=== PATIENT | female | born 1930 | race Caucasian/White ===

== ENCOUNTER 2016-06-09 21:00 | Emergency (ER) | payer OTHER ==
[~2016-06-09] VITALS: Ht 160 cm; Wt 74.9 kg
[~2016-06-09 21:00] MED LIST: ATACAND32 MG PO; Atarax,Vistaril PO; Ativan PO; COZAAR25 MG PO; CYMBALTA20 MG PO; CYMBALTA60 MG PO; DELTASONE5 MG PO; Flovent 110 mcg IH; GABAPENTIN100 MG PO; HYDROCHLOROTHIA25 MG PO; MIRAPEX0.25 MG PO; MIRAPEX0.5 MG PO; Mycostatin PO; NEXIUM40 MG PO; NORVASC5 MG PO; OXYCONTIN10 MG PO; PERCOCET 5/31 TABLET PO; PREDNISONE20 MG PO; Proventil,Ventolin H IH; Tamiflu PO; ULTRAM ER300 MG PO; VIBRA-TABS100 MG PO; predniSONE PO
[2016-06-09] MEDS ORDERED: ASPIR 8181 M1 PO (21:21)
[2016-06-09] MEDS ORDERED: METOPROLOL TART25 MG PO (21:22)
[2016-06-09] MEDS ORDERED: PREDNISONE5 MG PO (21:23)
[2016-06-09 21:47] LABS: EOSINOPHIL (%) 0.6 % (0-5); EOSINOPHIL COUNT 0.1 K/uL (0-0.3); HEMATOCRIT 41.4 % (36.0-46.0); IMMATURE GRANULOCYTE (%) 0.2 % (0.0-0.7); IMMATURE GRANULOCYTE COUNT 0.2 K/uL; LYMPHOCYTE COUNT 1.6 K/uL (1.0-2.8); MCH 30.9 PG (29.0-34.0); MCHC 33.1 G/DL (30.0-36.0); MCV 93.2 FL (83-99); MEAN PLAT.VOLUME 9.1 uM^3 (9.5-12.4); MONOCYTE (%) 8.8 % (3-12); MONOCYTE COUNT 0.9 K/uL (0-0.8); NEUTROPHIL (%) 75.1 % (45-76); NEUTROPHIL COUNT 7.8 K/uL (1.8-6.4); PLATELET COUNT 280 K/uL (156-360); RBC DIS.WIDTH-CV 13.1 % (11.8-14.6); RBC DIS.WIDTH-SD 43.2 % (39-53); RED BLOOD COUNT 4.44 M/uL (3.80-5.20); WHITE BLOOD COUNT 10.4 K/uL (4.1-10.2)
[2016-06-09 21:55] LABS: CHLORIDE 100 mEq/L (99-109); POTASSIUM 3.5 mEq/L (3.7-5.4); SODIUM 139 mEq/L (136-147)
[2016-06-09 21:57] LABS: GLUCOSE 108 mg/dL (70-99)
[2016-06-09 21:58] LABS: ANION GAP 11 MEQ/L (2-14)
[2016-06-09 22:00] LABS: GFR ESTIMATE (CALCULATED) > 59 mL/min/
[2016-06-09 22:01] LABS: UREA NITROGEN (BUN) 14 mg/dL (9-23)
[2016-06-09 22:09] LABS: TROP-I INTERPRETATION NEGATIVE; TROPONIN-I 0.02 ng/mL (0.0-0.30)
[2016-06-09 22:22] LABS: INFLUENZA A VIRAL ANTIGEN NEGATIVE; INFLUENZA B VIRAL ANTIGEN NEGATIVE
[2016-06-09 23:17] LABS: ADD MIUA? YES; BILIRUBIN NEGATIVE; BLOOD NEGATIVE; COLOR YELLOW ((YELLOW)); GLUCOSE (STRIP) NEGATIVE; KETONES NEGATIVE; LEUKOCYTES SMALL; NITRITE NEGATIVE; PH, URINE 6.5 (5-8); PROTEIN (STRIP) NEGATIVE; SPECIFIC GRAVITY 1.013 (1.000-1.030); UROBILINOGEN 0.2 MG/DL (0.2-1.0)
[2016-06-09 23:48] LABS: BACTERIA RARE /HPF; CASTS NONE SEEN /LPF; CRYSTALS NONE SEEN; EPITHELIAL CELLS NONE SEEN /HPF; MUCUS NONE SEEN /LPF; RED BLOOD CELLS NONE SEEN /HPF (0-5); WHITE BLOOD CELLS 0-5 /HPF (0-5)
[2016-06-10 01:30] VITALS: BP 133/71
== END 2016-06-10 01:40 | disposition home or self-care (01) ==
LOC: EME → EDSEX 21:00 → EDBD 21:00 → EME 06-10 01:40
PROVIDERS: Emergency Medicine
DX: R10.30 Lower abdominal pain, unspecified (principal); R19.7 Diarrhea, unspecified; R51 Headache; E86.0 Dehydration; E83.52 Hypercalcemia; N83.202 Unspecified ovarian cyst, left side; R05 Cough; R35.0 Frequency of micturition; R53.1 Weakness; R42 Dizziness and giddiness; I10 Essential (primary) hypertension; G89.29 Other chronic pain; Z79.891 Long term (current) use of opiate analgesic; Z79.52 Long term (current) use of systemic steroids; Z79.82 Long term (current) use of aspirin
CPT/HCPCS: 70450; 71020; 74177; 80048; 81003; 83605; 83880; 84484; 85025; 87040; 87502; 99281; 99285; J1100; J1200; J2765; J3010; J7030

== ENCOUNTER 2016-06-14 13:12 | Emergency (ER) | payer OTHER ==
[~2016-06-14] VITALS: Ht 162.6 cm; Wt 71.9 kg
[~2016-06-14 13:12] MED LIST changes: +ASPIR 8181 M1 PO; +METOPROLOL TART25 MG PO; +PREDNISONE5 MG PO
[2016-06-14 15:24] LABS: EOSINOPHIL (%) 0.1 % (0-5); HEMATOCRIT 42.1 % (36.0-46.0); IMMATURE GRANULOCYTE (%) 0.4 % (0.0-0.7); IMMATURE GRANULOCYTE COUNT 0.3 K/uL; LYMPHOCYTE COUNT 1.8 K/uL (1.0-2.8); MCH 31.1 PG (29.0-34.0); MCV 94.2 FL (83-99); MONOCYTE (%) 14.9 % (3-12); MONOCYTE COUNT 1.2 K/uL (0-0.8); NEUTROPHIL (%) 62.3 % (45-76); NEUTROPHIL COUNT 5.1 K/uL (1.8-6.4); PLATELET COUNT 274 K/uL (156-360); RBC DIS.WIDTH-CV 13.6 % (11.8-14.6); RBC DIS.WIDTH-SD 44.8 % (39-53); RED BLOOD COUNT 4.47 M/uL (3.80-5.20); WHITE BLOOD COUNT 8.1 K/uL (4.1-10.2)
[2016-06-14 15:34] LABS: CHLORIDE 103 mEq/L (99-109); POTASSIUM 3.7 mEq/L (3.7-5.4); SODIUM 140 mEq/L (136-147)
[2016-06-14 15:35] LABS: GLUCOSE 103 mg/dL (70-99)
[2016-06-14 15:37] LABS: ANION GAP 10 MEQ/L (2-14)
[2016-06-14 15:39] LABS: GFR ESTIMATE (CALCULATED) > 59 mL/min/
[2016-06-14 15:40] LABS: UREA NITROGEN (BUN) 9 mg/dL (9-23)
[2016-06-14 16:21] LABS: ADD MIUA? YES; BILIRUBIN NEGATIVE; BLOOD MODERATE; COLOR YELLOW ((YELLOW)); GLUCOSE (STRIP) NEGATIVE; KETONES NEGATIVE; LEUKOCYTES NEGATIVE; NITRITE NEGATIVE; PROTEIN (STRIP) NEGATIVE; SPECIFIC GRAVITY 1.005 (1.000-1.030); UROBILINOGEN 0.2 MG/DL (0.2-1.0)
[2016-06-14 16:28] LABS: BACTERIA RARE /HPF; EPITHELIAL CELLS RARE /HPF; MUCUS NONE SEEN /LPF; RED BLOOD CELLS 0-5 /HPF (0-5); UCUL ADDED? NO; WHITE BLOOD CELLS 0-5 /HPF (0-5)
[2016-06-14 22:09] LABS: INFLUENZA A VIRAL ANTIGEN NEGATIVE; INFLUENZA B VIRAL ANTIGEN NEGATIVE
[2016-06-14 23:37] VITALS: BP 135/66
== END 2016-06-15 00:15 | disposition home or self-care (01) ==
LOC: EME → EDBD 13:12 → EME 06-15 00:15
PROVIDERS: Emergency Medicine
DX: B34.9 Viral infection, unspecified (principal); R53.1 Weakness; E78.5 Hyperlipidemia, unspecified; I10 Essential (primary) hypertension; M79.7 Fibromyalgia; G89.29 Other chronic pain; K21.9 Gastro-esophageal reflux disease without esophagitis; Z85.3 Personal history of malignant neoplasm of breast; Z90.11 Acquired absence of right breast and nipple; Z79.82 Long term (current) use of aspirin; Z88.1 Allergy status to other antibiotic agents; Z88.6 Allergy status to analgesic agent; Z88.5 Allergy status to narcotic agent
CPT/HCPCS: 71020; 80048; 81003; 83605; 85025; 87502; 99281; 99285; J1885; J7030

== ENCOUNTER 2016-09-25 16:22 | Emergency (ER) | payer OTHER ==
[~2016-09-25] VITALS: Ht 157.5 cm; Wt 73.3 kg
[2016-09-25 17:06] LABS: EOSINOPHIL (%) 1.9 % (0-5); EOSINOPHIL COUNT 0.2 K/uL (0-0.3); HEMATOCRIT 40.3 % (36.0-46.0); IMMATURE GRANULOCYTE (%) 0.3 % (0.0-0.7); INSTRUMENT ABS NEUTROPHIL CT 6.1 K/uL; LYMPHOCYTE COUNT 1.8 K/uL (1.0-2.8); MCH 29.9 PG (29.0-34.0); MCHC 31.8 G/DL (30.0-36.0); MCV 94.2 FL (83-99); MEAN PLAT.VOLUME 8.8 uM^3 (9.5-12.4); NEUTROPHIL (%) 66.9 % (45-76); NEUTROPHIL COUNT 6.1 K/uL (1.8-6.4); PLATELET COUNT 337 K/uL (156-360); RBC DIS.WIDTH-CV 13.4 % (11.8-14.6); RBC DIS.WIDTH-SD 46.5 % (39-53); RED BLOOD COUNT 4.28 M/uL (3.80-5.20)
[2016-09-25 17:20] LABS: CHLORIDE 102 mEq/L (99-109); POTASSIUM 3.8 mEq/L (3.7-5.4); SODIUM 138 mEq/L (136-147)
[2016-09-25 17:23] LABS: GLUCOSE 102 mg/dL (70-99)
[2016-09-25 17:24] LABS: ANION GAP 12 MEQ/L (2-14)
[2016-09-25 17:25] LABS: TOTAL BILIRUBIN 0.6 mg/dL (0.0-1.0)
[2016-09-25 17:26] LABS: ALKALINE PHOSPHATASE 60 IU/L (3-129); GFR ESTIMATE (CALCULATED) > 59 mL/min/
[2016-09-25 17:27] LABS: UREA NITROGEN (BUN) 16 mg/dL (9-23)
[2016-09-25 17:30] LABS: LIPASE 6 U/L (1.0-51.0)
[2016-09-25 19:02] LABS: ADD MIUA? YES; BILIRUBIN NEGATIVE; BLOOD SMALL; COLOR YELLOW ((YELLOW)); GLUCOSE (STRIP) NEGATIVE; KETONES 5; LEUKOCYTES NEGATIVE; NITRITE NEGATIVE; PROTEIN (STRIP) NEGATIVE; UROBILINOGEN 0.2 MG/DL (0.2-1.0)
[2016-09-25 19:11] LABS: BACTERIA NONE SEEN /HPF; EPITHELIAL CELLS RARE /HPF; MUCUS NONE SEEN /LPF; RED BLOOD CELLS 0-5 /HPF (0-5); UCUL ADDED? NO; WHITE BLOOD CELLS 0-5 /HPF (0-5)
[2016-09-25 23:02] VITALS: BP 126/63
== END 2016-09-25 23:10 | disposition home or self-care (01) ==
LOC: EME → EDBD 16:22 → EME 23:10
PROVIDERS: Emergency Medicine
DX: K59.00 Constipation, unspecified (principal); R10.9 Unspecified abdominal pain; E78.5 Hyperlipidemia, unspecified; I10 Essential (primary) hypertension; K21.9 Gastro-esophageal reflux disease without esophagitis; M79.7 Fibromyalgia
CPT/HCPCS: 71010; 74177; 80053; 81003; 83605; 83690; 85025; 99281; 99285; J3010; J7040

== ENCOUNTER 2016-10-25 05:39 | Inpatient (IN) | payer OTHER ==
[~2016-10-25] VITALS: Ht 152.4 cm; Wt 72.0 kg
[2016-10-25] MEDS ORDERED: TRAMADOL HCL E300 M1 PO (06:04)
[2016-10-25 06:05] VITALS: BP 121/62
[2016-10-25 15:28] VITALS: BP 163/77
[2016-10-25 19:23] VITALS: BP 138/60
[2016-10-26] VITALS (15 sets, daily range): BP systolic 99–134; BP diastolic 34–57
[2016-10-26 05:14] LABS: EOSINOPHIL (%) 0 % (0-5); HEMATOCRIT 29.6 % (36.0-46.0); IMMATURE GRANULOCYTE (%) 0.2 % (0.0-0.7); INSTRUMENT ABS NEUTROPHIL CT 8.7 K/uL; LYMPHOCYTE COUNT 0.7 K/uL (1.0-2.8); MCH 30.8 PG (29.0-34.0); MCHC 30.1 G/DL (30.0-36.0); MEAN PLAT.VOLUME 9.7 uM^3 (9.5-12.4); MONOCYTE (%) 10.5 % (3-12); MONOCYTE COUNT 1.1 K/uL (0-0.8); NEUTROPHIL (%) 82.5 % (45-76); NEUTROPHIL COUNT 8.7 K/uL (1.8-6.4); RBC DIS.WIDTH-CV 13.4 % (11.8-14.6); RBC DIS.WIDTH-SD 50.7 % (39-53); WHITE BLOOD COUNT 10.5 K/uL (4.1-10.2)
[2016-10-26 05:18] LABS: MCV 102.4 FL (83-99); PLATELET COUNT 192 K/uL (156-360); RED BLOOD COUNT 2.89 M/uL (3.80-5.20)
[2016-10-26 07:09] LABS: METH RESISTANT S AUREUS PCR NEGATIVE (NEGATIVE)
[2016-10-26 07:11] LABS: PROBE CHECK PASS; SPECIMEN PROCESSING CONTROL PASS
[2016-10-26 09:07] LABS: ANION GAP 13 MEQ/L (2-14); CHLORIDE 108 MEQ/L (99-109); MAGNESIUM 1.6 mg/dl (1.3-2.7); POTASSIUM 4.7 MEQ/L (3.7-5.4); SAMPLE HEMOLYSIS CHECK 1; SAMPLE ICTERIC CHECK 0; SAMPLE LIPEMIA CHECK 0; SODIUM 142 MEQ/L (136-147)
[2016-10-26 09:08] LABS: TOTAL BILIRUBIN 0.6 MG/DL (0.0-1.0)
[2016-10-26 09:13] LABS: ALKALINE PHOSPHATASE 51 IU/L (3-129); GFR ESTIMATE (CALCULATED) 50 mL/min/; GLUCOSE 154 mg/dL (70-99); UREA NITROGEN (BUN) 18 mg/dL (9-23)
[2016-10-26 09:51] LABS: BASE EXCESS -0.7 mEq/L (-3 to +3); BICARBONATE 23.2 mEq/L (22-26); CARBOXY HGB 0 % (0-5); METHEMOGLOBIN 0.6 % (0-1.5); PCO2 35 mm Hg (35-45); PO2 82 mm Hg (80-100); pH 7.43 (7.35-7.45)
[2016-10-26 09:52] LABS: COMMENTS - BLOOD GASES A+C+; DEVICE VENT; FI02 60 %; MECHANICAL RATE 12 resp/min; MODE SIMV; PEEP 5 CM/H20; SITE LR; TIDAL VOLUME 450 ML; TOTAL RESP RATE 18 resp/min
[2016-10-27] VITALS (24 sets, daily range): BP systolic 90–169; BP diastolic 36–83
[2016-10-27 05:08] LABS: BASE EXCESS 1.2 mEq/L (-3 to +3); CARBOXY HGB 0 % (0-5); COMMENTS - BLOOD GASES C+A+; DEVICE VENT; FI02 40 %; METHEMOGLOBIN 1.1 % (0-1.5); MODE SPONT; PCO2 36 mm Hg (35-45); PEEP 5 CM/H20; PO2 57 mm Hg (80-100); PRES. SUPPORT 15 CM/H2O; SITE LR; TOTAL RESP RATE 19 resp/min; pH 7.45 (7.35-7.45)
[2016-10-27 05:10] LABS: CHLORIDE 113 mEq/L (99-109); POTASSIUM 3.8 mEq/L (3.7-5.4); SODIUM 142 mEq/L (136-147)
[2016-10-27 05:11] LABS: MAGNESIUM 1.4 mg/dL (1.3-2.7)
[2016-10-27 05:13] LABS: GLUCOSE 135 mg/dL (70-99)
[2016-10-27 05:14] LABS: ANION GAP 6 MEQ/L (2-14)
[2016-10-27 05:15] LABS: TOTAL BILIRUBIN 0.5 mg/dL (0.0-1.0)
[2016-10-27 05:16] LABS: ALKALINE PHOSPHATASE 42 IU/L (3-129)
[2016-10-27 05:17] LABS: GFR ESTIMATE (CALCULATED) 56 mL/min/
[2016-10-27 05:18] LABS: UREA NITROGEN (BUN) 15 mg/dL (9-23)
[2016-10-27 05:19] LABS: HEMATOCRIT 34.1 % (36.0-46.0); MCHC 31.4 G/DL (30.0-36.0); MCV 95.5 FL (83-99); MEAN PLAT.VOLUME 9.6 uM^3 (9.5-12.4); PLATELET COUNT 223 K/uL (156-360); RBC DIS.WIDTH-CV 13.7 % (11.8-14.6); RBC DIS.WIDTH-SD 48.3 % (39-53); RED BLOOD COUNT 3.57 M/uL (3.80-5.20); WHITE BLOOD COUNT 10.6 K/uL (4.1-10.2)
[2016-10-28] VITALS (24 sets, daily range): BP systolic 135–193; BP diastolic 48–86
[2016-10-28 05:51] LABS: EOSINOPHIL (%) 0.3 % (0-5); HEMATOCRIT 32.7 % (36.0-46.0); IMMATURE GRANULOCYTE (%) 0.5 % (0.0-0.7); IMMATURE GRANULOCYTE COUNT 0.1 K/uL; INSTRUMENT ABS NEUTROPHIL CT 7.8 K/uL; MCH 30.4 PG (29.0-34.0); MCHC 31.2 G/DL (30.0-36.0); MCV 97.6 FL (83-99); MEAN PLAT.VOLUME 9.6 uM^3 (9.5-12.4); MONOCYTE (%) 7.6 % (3-12); MONOCYTE COUNT 0.7 K/uL (0-0.8); NEUTROPHIL (%) 81.1 % (45-76); NEUTROPHIL COUNT 7.8 K/uL (1.8-6.4); PLATELET COUNT 208 K/uL (156-360); RBC DIS.WIDTH-CV 13.8 % (11.8-14.6); RBC DIS.WIDTH-SD 49.1 % (39-53); RED BLOOD COUNT 3.35 M/uL (3.80-5.20); WHITE BLOOD COUNT 9.6 K/uL (4.1-10.2)
[2016-10-28 06:36] LABS: ALKALINE PHOSPHATASE 47 IU/L (3-129); ANION GAP 9 MEQ/L (2-14); CHLORIDE 114 MEQ/L (99-109); GFR ESTIMATE (CALCULATED) > 59 mL/min/; GLUCOSE 124 mg/dL (70-99); POTASSIUM 3.8 MEQ/L (3.7-5.4); SAMPLE HEMOLYSIS CHECK 0; SAMPLE ICTERIC CHECK 0; SAMPLE LIPEMIA CHECK 0; SODIUM 145 MEQ/L (136-147); TOTAL BILIRUBIN 0.6 MG/DL (0.0-1.0); UREA NITROGEN (BUN) 13 mg/dL (9-23)
[2016-10-28 06:47] LABS: MAGNESIUM 2.1 mg/dl (1.3-2.7)
[2016-10-28 13:09] LABS: BASE EXCESS -4.3 mEq/L (-3 to +3); BICARBONATE 22.1 mEq/L (22-26); CARBOXY HGB 0 % (0-5); COMMENTS - BLOOD GASES C+; DEVICE NCH; METHEMOGLOBIN 0.8 % (0-1.5); O2 FLOW 8 L/MIN; PCO2 45 mm Hg (35-45); PO2 108 mm Hg (80-100); SITE LR; TOTAL RESP RATE 22 resp/min
[2016-10-28 16:21] LABS: AMYLASE 16 IU/L (1-118); LIPASE 8 U/L (1.0-51.0)
[2016-10-28 17:52] LABS: BASE EXCESS -1.5 mEq/L (-3 to +3); BICARBONATE 22.8 mEq/L (22-26); CARBOXY HGB 0 % (0-5); METHEMOGLOBIN 0.8 % (0-1.5)
[2016-10-28 17:53] LABS: COMMENTS - BLOOD GASES C+; DEVICE NCH; O2 FLOW 6 L/MIN; PCO2 36 mm Hg (35-45); PO2 54 mm Hg (80-100); SITE LR; TOTAL RESP RATE 36 resp/min; pH 7.41 (7.35-7.45)
[2016-10-28 23:13] LABS: TROP-I INTERPRETATION NEGATIVE; TROPONIN-I 0.03 ng/mL (0.0-0.30)
[2016-10-29] VITALS (24 sets, daily range): BP systolic 99–177; BP diastolic 47–90
[2016-10-29 05:38] LABS: EOSINOPHIL (%) 0 % (0-5); HEMATOCRIT 34.7 % (36.0-46.0); IMMATURE GRANULOCYTE (%) 0.3 % (0.0-0.7); INSTRUMENT ABS NEUTROPHIL CT 5.1 K/uL; LYMPHOCYTE COUNT 0.4 K/uL (1.0-2.8); MCH 29.6 PG (29.0-34.0); MCHC 30.8 G/DL (30.0-36.0); MCV 95.9 FL (83-99); MEAN PLAT.VOLUME 9.4 uM^3 (9.5-12.4); MONOCYTE (%) 2.4 % (3-12); MONOCYTE COUNT 0.1 K/uL (0-0.8); NEUTROPHIL (%) 89.8 % (45-76); NEUTROPHIL COUNT 5.1 K/uL (1.8-6.4); PLATELET COUNT 235 K/uL (156-360); RBC DIS.WIDTH-CV 13.5 % (11.8-14.6); RBC DIS.WIDTH-SD 48.2 % (39-53); RED BLOOD COUNT 3.62 M/uL (3.80-5.20); WHITE BLOOD COUNT 5.7 K/uL (4.1-10.2)
[2016-10-29 06:04] LABS: ALKALINE PHOSPHATASE 60 IU/L (3-129); ANION GAP 12 MEQ/L (2-14); CHLORIDE 113 MEQ/L (99-109); GFR ESTIMATE (CALCULATED) > 59 mL/min/; GLUCOSE 148 mg/dL (70-99); MAGNESIUM 1.9 mg/dl (1.3-2.7); POTASSIUM 4.1 MEQ/L (3.7-5.4); SAMPLE HEMOLYSIS CHECK 0; SAMPLE ICTERIC CHECK 0; SAMPLE LIPEMIA CHECK 0; SODIUM 149 MEQ/L (136-147); TOTAL BILIRUBIN 0.5 MG/DL (0.0-1.0); UREA NITROGEN (BUN) 19 mg/dL (9-23)
[2016-10-30] VITALS (16 sets, daily range): BP systolic 125–199; BP diastolic 52–132
[2016-10-30 11:11] LABS: EOSINOPHIL (%) 0.1 % (0-5); HEMATOCRIT 39.7 % (36.0-46.0); IMMATURE GRANULOCYTE (%) 0.6 % (0.0-0.7); LYMPHOCYTE COUNT 1.3 K/uL (1.0-2.8); MCH 29.6 PG (29.0-34.0); MCHC 31.2 G/DL (30.0-36.0); MCV 94.7 FL (83-99); MEAN PLAT.VOLUME 9.3 uM^3 (9.5-12.4); MONOCYTE (%) 11.1 % (3-12); MONOCYTE COUNT 0.8 K/uL (0-0.8); NEUTROPHIL (%) 69.6 % (45-76); PLATELET COUNT 274 K/uL (156-360); RBC DIS.WIDTH-CV 13.6 % (11.8-14.6); RBC DIS.WIDTH-SD 47.8 % (39-53); RED BLOOD COUNT 4.19 M/uL (3.80-5.20); WHITE BLOOD COUNT 7.1 K/uL (4.1-10.2)
[2016-10-30 12:21] LABS: ALKALINE PHOSPHATASE 59 IU/L (3-129); ANION GAP 15 MEQ/L (2-14); CHLORIDE 109 MEQ/L (99-109); GFR ESTIMATE (CALCULATED) 56 mL/min/; GLUCOSE 119 mg/dL (70-99); POTASSIUM 3.6 MEQ/L (3.7-5.4); SAMPLE HEMOLYSIS CHECK 0; SAMPLE ICTERIC CHECK 0; SAMPLE LIPEMIA CHECK 0; SODIUM 147 MEQ/L (136-147); TOTAL BILIRUBIN 0.6 MG/DL (0.0-1.0); TRIGLYCERIDES 220 MG/DL (Normal: <150)
[2016-10-30 12:35] LABS: MAGNESIUM 2.5 mg/dl (1.3-2.7); UREA NITROGEN (BUN) 35 mg/dL (9-23)
[2016-10-30 12:39] LABS: PREALBUMIN 5.5 mg/dL (10-40)
[2016-10-30 15:07] LABS: BASE EXCESS 3.5 mEq/L (-3 to +3); BICARBONATE 26.5 mEq/L (22-26); CARBOXY HGB 0 % (0-5); COMMENTS - BLOOD GASES A+C+; METHEMOGLOBIN 0.8 % (0-1.5); O2 FLOW 6 L/MIN; PCO2 34 mm Hg (35-45); PO2 67 mm Hg (80-100); SITE LR
[2016-10-30 15:08] LABS: DEVICE NC; TOTAL RESP RATE 30 resp/min
[2016-10-31] VITALS (7 sets, daily range): BP systolic 121–189; BP diastolic 55–124
[2016-10-31 05:25] LABS: CHLORIDE 107 mEq/L (99-109); POTASSIUM 4.1 mEq/L (3.7-5.4); SODIUM 147 mEq/L (136-147)
[2016-10-31 05:27] LABS: GLUCOSE 135 mg/dL (70-99)
[2016-10-31 05:28] LABS: ANION GAP 16 MEQ/L (2-14)
[2016-10-31 05:31] LABS: GFR ESTIMATE (CALCULATED) > 59 mL/min/; UREA NITROGEN (BUN) 30 mg/dL (9-23)
[2016-10-31 05:33] LABS: MAGNESIUM 1.9 mg/dL (1.3-2.7)
[2016-10-31 05:59] LABS: HEMATOCRIT 47.3 % (36.0-46.0); MCH 30.1 PG (29.0-34.0); MCHC 31.1 G/DL (30.0-36.0); MCV 96.9 FL (83-99); RBC DIS.WIDTH-CV 14.2 % (11.8-14.6); RBC DIS.WIDTH-SD 50.4 % (39-53); RED BLOOD COUNT 4.88 M/uL (3.80-5.20); WHITE BLOOD COUNT 6.6 K/uL (4.1-10.2)
[2016-10-31 06:25] LABS: PLAT.SUFFICIENCY ADEQUATE; PLATELET CLUMPS PRESENT - PLATELET COUNT APPEARS ADQ.
[2016-11-01] VITALS (15 sets, daily range): BP systolic 84–201; BP diastolic 26–109
[2016-11-01 06:21] LABS: ANION GAP 14 MEQ/L (2-14); CHLORIDE 100 MEQ/L (99-109); GFR ESTIMATE (CALCULATED) 50 mL/min/; GLUCOSE 160 mg/dL (70-99); SAMPLE HEMOLYSIS CHECK 0; SAMPLE ICTERIC CHECK 0; SAMPLE LIPEMIA CHECK 0; SODIUM 148 MEQ/L (136-147); UREA NITROGEN (BUN) 38 mg/dL (9-23)
[2016-11-01 06:22] LABS: MAGNESIUM 1.8 mg/dl (1.3-2.7); POTASSIUM 2.8 MEQ/L (3.7-5.4)
[2016-11-02] VITALS: BP 136/45
[2016-11-02 04:00] VITALS: BP 141/72
[2016-11-02 06:07] LABS: HEMATOCRIT 39.6 % (36.0-46.0); MCH 29.3 PG (29.0-34.0); MCHC 31.3 G/DL (30.0-36.0); MCV 93.6 FL (83-99); MEAN PLAT.VOLUME 9.5 uM^3 (9.5-12.4); RBC DIS.WIDTH-CV 13.9 % (11.8-14.6); RBC DIS.WIDTH-SD 47.2 % (39-53); RED BLOOD COUNT 4.23 M/uL (3.80-5.20); WHITE BLOOD COUNT 9.6 K/uL (4.1-10.2)
[2016-11-02 06:23] LABS: PLATELET COUNT 370 K/uL (156-360)
[2016-11-02 06:28] LABS: ANION GAP 12 MEQ/L (2-14); CHLORIDE 107 MEQ/L (99-109); GFR ESTIMATE (CALCULATED) 38 mL/min/; GLUCOSE 206 mg/dL (70-99); SAMPLE HEMOLYSIS CHECK 0; SAMPLE ICTERIC CHECK 0; SAMPLE LIPEMIA CHECK 0; SODIUM 146 MEQ/L (136-147)
[2016-11-02 06:34] LABS: MAGNESIUM 2.4 mg/dl (1.3-2.7); UREA NITROGEN (BUN) 58 mg/dL (9-23)
[2016-11-02 08:00] VITALS: BP 166/57
[2016-11-02 11:36] LABS: POINT-OF-CARE METER ID UU13113748
[2016-11-02 12:00] VITALS: BP 158/42
[2016-11-02 16:00] VITALS: BP 166/48
[2016-11-02 17:43] LABS: POINT-OF-CARE METER ID UU13113748
[2016-11-02 20:00] VITALS: BP 156/40
[2016-11-02 23:47] LABS: POINT-OF-CARE METER ID UU13113748
[2016-11-03] VITALS (7 sets, daily range): BP systolic 148–178; BP diastolic 30–87
[2016-11-03 06:33] LABS: EOSINOPHIL (%) 7.5 % (0-5); EOSINOPHIL COUNT 0.7 K/uL (0-0.3); HEMATOCRIT 38.8 % (36.0-46.0); IMMATURE GRANULOCYTE (%) 1.4 % (0.0-0.7); IMMATURE GRANULOCYTE COUNT 0.1 K/uL; INSTRUMENT ABS NEUTROPHIL CT 6.1 K/uL; LYMPHOCYTE COUNT 1.7 K/uL (1.0-2.8); MCH 29.9 PG (29.0-34.0); MCHC 31.7 G/DL (30.0-36.0); MCV 94.4 FL (83-99); MEAN PLAT.VOLUME 9.6 uM^3 (9.5-12.4); MONOCYTE (%) 11.7 % (3-12); MONOCYTE COUNT 1.2 K/uL (0-0.8); NEUTROPHIL (%) 61.8 % (45-76); NEUTROPHIL COUNT 6.1 K/uL (1.8-6.4); PLATELET COUNT 402 K/uL (156-360); RBC DIS.WIDTH-SD 47.5 % (39-53); RED BLOOD COUNT 4.11 M/uL (3.80-5.20); WHITE BLOOD COUNT 9.9 K/uL (4.1-10.2)
[2016-11-03 06:34] LABS: POINT-OF-CARE METER ID UU14162636
[2016-11-03 06:59] LABS: ALKALINE PHOSPHATASE 63 IU/L (3-129); ANION GAP 10 MEQ/L (2-14); CHLORIDE 114 MEQ/L (99-109); DIRECT BILIRUBIN 0.1 mg/dL (0.0-0.3); GFR ESTIMATE (CALCULATED) 50 mL/min/; GLUCOSE 206 mg/dL (70-99); MAGNESIUM 2.6 mg/dl (1.3-2.7); POTASSIUM 4.1 MEQ/L (3.7-5.4); SAMPLE HEMOLYSIS CHECK 0; SAMPLE ICTERIC CHECK 0; SAMPLE LIPEMIA CHECK 0; SODIUM 148 MEQ/L (136-147); UREA NITROGEN (BUN) 46 mg/dL (9-23)
[2016-11-03 07:02] LABS: TOTAL BILIRUBIN 0.4 MG/DL (0.0-1.0)
[2016-11-03 12:11] LABS: POINT-OF-CARE METER ID UU14162636
[2016-11-03 17:28] LABS: POINT-OF-CARE METER ID UU14162636
[2016-11-04] VITALS: BP 150/74
[2016-11-04 02:52] LABS: POINT-OF-CARE METER ID UU14162636
[2016-11-04 04:00] VITALS: BP 136/61
[2016-11-04 07:13] LABS: EOSINOPHIL (%) 6.3 % (0-5); EOSINOPHIL COUNT 0.6 K/uL (0-0.3); HEMATOCRIT 40.2 % (36.0-46.0); IMMATURE GRANULOCYTE (%) 1.9 % (0.0-0.7); IMMATURE GRANULOCYTE COUNT 0.2 K/uL; INSTRUMENT ABS NEUTROPHIL CT 5.6 K/uL; LYMPHOCYTE COUNT 1.5 K/uL (1.0-2.8); MCH 29.2 PG (29.0-34.0); MCHC 30.1 G/DL (30.0-36.0); MCV 96.9 FL (83-99); MEAN PLAT.VOLUME 9.9 uM^3 (9.5-12.4); MONOCYTE (%) 13.7 % (3-12); MONOCYTE COUNT 1.3 K/uL (0-0.8); NEUTROPHIL (%) 61.6 % (45-76); NEUTROPHIL COUNT 5.6 K/uL (1.8-6.4); PLATELET COUNT 344 K/uL (156-360); RBC DIS.WIDTH-SD 49.7 % (39-53); RED BLOOD COUNT 4.15 M/uL (3.80-5.20); WHITE BLOOD COUNT 9.1 K/uL (4.1-10.2)
[2016-11-04 08:00] VITALS: BP 163/33
[2016-11-04 08:50] LABS: ALKALINE PHOSPHATASE 65 IU/L (3-129); ANION GAP 8 MEQ/L (2-14); CHLORIDE 119 MEQ/L (99-109); DIRECT BILIRUBIN 0.1 mg/dL (0.0-0.3); GFR ESTIMATE (CALCULATED) 56 mL/min/; GLUCOSE 181 mg/dL (70-99); POTASSIUM 4.6 MEQ/L (3.7-5.4); PREALBUMIN 9.7 mg/dL (10-40); SAMPLE HEMOLYSIS CHECK 0; SAMPLE ICTERIC CHECK 0; SAMPLE LIPEMIA CHECK 0; SODIUM 148 MEQ/L (136-147); TOTAL BILIRUBIN 0.4 MG/DL (0.0-1.0); TRIGLYCERIDES 272 MG/DL (Normal: <150); UREA NITROGEN (BUN) 37 mg/dL (9-23)
[2016-11-04 08:51] LABS: MAGNESIUM 2.2 mg/dl (1.3-2.7)
[2016-11-04 12:00] VITALS: BP 163/33
[2016-11-04 12:13] LABS: POINT-OF-CARE METER ID UU14162636
[2016-11-04 16:00] VITALS: BP 141/58
[2016-11-04 17:44] LABS: POINT-OF-CARE METER ID UU14162636
[2016-11-04 20:00] VITALS: BP 135/45
[2016-11-04 23:59] LABS: POINT-OF-CARE METER ID UU14174217
[2016-11-05] VITALS (8 sets, daily range): BP systolic 95–155; BP diastolic 33–106
[2016-11-05 05:20] LABS: POTASSIUM 4.2 mEq/L (3.7-5.4); SODIUM 142 mEq/L (136-147)
[2016-11-05 05:22] LABS: GLUCOSE 153 mg/dL (70-99)
[2016-11-05 05:23] LABS: ANION GAP 5 MEQ/L (2-14)
[2016-11-05 05:26] LABS: CHLORIDE 118 mEq/L (99-109); GFR ESTIMATE (CALCULATED) 50 mL/min/; MAGNESIUM 1.6 mg/dL (1.3-2.7)
[2016-11-05 05:27] LABS: UREA NITROGEN (BUN) 35 mg/dL (9-23)
[2016-11-05 05:59] LABS: POINT-OF-CARE METER ID UU13113748
[2016-11-05 12:20] LABS: POINT-OF-CARE METER ID UU13113748
[2016-11-05 17:41] LABS: POINT-OF-CARE METER ID UU13113748
[2016-11-06 01:04] LABS: POINT-OF-CARE METER ID UU13113748
[2016-11-06 05:31] LABS: POINT-OF-CARE METER ID UU13113731
[2016-11-06 06:12] LABS: ANION GAP 9 MEQ/L (2-14); CHLORIDE 110 MEQ/L (99-109); GFR ESTIMATE (CALCULATED) 50 mL/min/; GLUCOSE 160 mg/dL (70-99); MAGNESIUM 2.1 mg/dl (1.3-2.7); POTASSIUM 4.1 MEQ/L (3.7-5.4); SAMPLE HEMOLYSIS CHECK 0; SAMPLE ICTERIC CHECK 0; SAMPLE LIPEMIA CHECK 0; SODIUM 138 MEQ/L (136-147); UREA NITROGEN (BUN) 34 mg/dL (9-23)
[2016-11-06 06:14] LABS: HEMATOCRIT 34.4 % (36.0-46.0); MCH 29.8 PG (29.0-34.0); MCHC 32.3 G/DL (30.0-36.0); MCV 92.5 FL (83-99); MEAN PLAT.VOLUME 10.1 uM^3 (9.5-12.4); PLATELET COUNT 369 K/uL (156-360); RBC DIS.WIDTH-CV 13.6 % (11.8-14.6); RBC DIS.WIDTH-SD 46.1 % (39-53); RED BLOOD COUNT 3.72 M/uL (3.80-5.20); WHITE BLOOD COUNT 9.4 K/uL (4.1-10.2)
[2016-11-06 08:00] VITALS: BP 124/65
[2016-11-06 12:00] VITALS: BP 0/0; BP 122/33
[2016-11-06 13:30] LABS: POINT-OF-CARE METER ID UU13113731
[2016-11-06 16:00] VITALS: BP 140/75
[2016-11-06 19:22] VITALS: BP 111/53
[2016-11-07] VITALS: BP 129/59
[2016-11-07 00:25] LABS: POINT-OF-CARE METER ID UU13113725; POINT-OF-CARE USER ID 608261329
[2016-11-07 05:22] VITALS: BP 147/68
[2016-11-07 05:33] LABS: POINT-OF-CARE METER ID UU13113725
[2016-11-07 06:30] VITALS: BP 132/59
[2016-11-07 06:30] LABS: HEMATOCRIT 34.5 % (36.0-46.0); MCH 29.3 PG (29.0-34.0); MCHC 31.3 G/DL (30.0-36.0); MCV 93.5 FL (83-99); MEAN PLAT.VOLUME 10.3 uM^3 (9.5-12.4); PLATELET COUNT 399 K/uL (156-360); RBC DIS.WIDTH-CV 13.5 % (11.8-14.6); RBC DIS.WIDTH-SD 46.2 % (39-53); RED BLOOD COUNT 3.69 M/uL (3.80-5.20); WHITE BLOOD COUNT 8.5 K/uL (4.1-10.2)
[2016-11-07 06:52] LABS: ANION GAP 10 MEQ/L (2-14); CHLORIDE 109 MEQ/L (99-109); GFR ESTIMATE (CALCULATED) 56 mL/min/; GLUCOSE 156 mg/dL (70-99); MAGNESIUM 2.1 mg/dl (1.3-2.7); POTASSIUM 4.4 MEQ/L (3.7-5.4); SAMPLE HEMOLYSIS CHECK 0; SAMPLE ICTERIC CHECK 0; SAMPLE LIPEMIA CHECK 0; SODIUM 140 MEQ/L (136-147); UREA NITROGEN (BUN) 32 mg/dL (9-23)
[2016-11-07 15:00] VITALS: BP 136/61
[2016-11-07 18:41] LABS: POINT-OF-CARE METER ID UU13113725
[2016-11-07 20:20] VITALS: BP 119/76
[2016-11-07 23:27] VITALS: BP 126/69
[2016-11-08 07:00] LABS: ANION GAP 10 MEQ/L (2-14); CHLORIDE 107 MEQ/L (99-109); GFR ESTIMATE (CALCULATED) 56 mL/min/; GLUCOSE 122 mg/dL (70-99); MAGNESIUM 1.9 mg/dl (1.3-2.7); POTASSIUM 4.4 MEQ/L (3.7-5.4); SAMPLE HEMOLYSIS CHECK 0; SAMPLE ICTERIC CHECK 0; SAMPLE LIPEMIA CHECK 0; SODIUM 140 MEQ/L (136-147); UREA NITROGEN (BUN) 34 mg/dL (9-23)
[2016-11-08 08:20] VITALS: BP 128/53
[2016-11-08 17:42] LABS: POINT-OF-CARE METER ID UU13113725
[2016-11-08 18:28] VITALS: BP 123/57
[2016-11-08 23:55] LABS: POINT-OF-CARE METER ID UU13113725
[2016-11-09 00:13] VITALS: BP 163/66
[2016-11-09 05:58] LABS: POINT-OF-CARE METER ID UU13113725
[2016-11-09 06:49] VITALS: BP 140/66
[2016-11-09 06:57] LABS: ANION GAP 9 MEQ/L (2-14); CHLORIDE 104 MEQ/L (99-109); GFR ESTIMATE (CALCULATED) 45 mL/min/; GLUCOSE 149 mg/dL (70-99); POTASSIUM 4.7 MEQ/L (3.7-5.4); SAMPLE HEMOLYSIS CHECK 0; SAMPLE ICTERIC CHECK 0; SAMPLE LIPEMIA CHECK 0; SODIUM 139 MEQ/L (136-147); UREA NITROGEN (BUN) 43 mg/dL (9-23)
[2016-11-09 06:59] LABS: MAGNESIUM 2.2 mg/dl (1.3-2.7)
[2016-11-09 11:52] VITALS: BP 187/96
[2016-11-09 16:13] VITALS: BP 159/59
[2016-11-09 19:08] VITALS: BP 130/63
[2016-11-09 23:09] VITALS: BP 114/63
[2016-11-10 00:25] LABS: POINT-OF-CARE METER ID UU13113725
[2016-11-10 06:55] VITALS: BP 129/77
[2016-11-10 12:02] LABS: ANION GAP 12 MEQ/L (2-14); CHLORIDE 104 MEQ/L (99-109); POTASSIUM 4.5 MEQ/L (3.7-5.4); SAMPLE HEMOLYSIS CHECK 0; SAMPLE ICTERIC CHECK 0; SAMPLE LIPEMIA CHECK 0; SODIUM 140 MEQ/L (136-147)
[2016-11-10 12:03] LABS: MAGNESIUM 1.8 mg/dl (1.3-2.7)
[2016-11-10 12:04] LABS: GFR ESTIMATE (CALCULATED) 50 mL/min/; GLUCOSE 112 mg/dL (70-99); UREA NITROGEN (BUN) 36 mg/dL (9-23)
[2016-11-10 13:37] VITALS: BP 129/60
[2016-11-10 15:45] VITALS: BP 138/82
[2016-11-10 22:40] VITALS: BP 164/70
[2016-11-11 05:01] VITALS: BP 125/60
[2016-11-11] MEDS ORDERED: FENTANYL1 EAC5 TD ×2 (08:35→09:31)
[2016-11-11 08:58] VITALS: BP 130/58
[2016-11-11 10:40] LABS: BASOPHIL COUNT 0.1 K/uL (0-0.1); EOSINOPHIL (%) 1.6 % (0-5); EOSINOPHIL COUNT 0.1 K/uL (0-0.3); IMMATURE GRANULOCYTE (%) 0.5 % (0.0-0.7); INSTRUMENT ABS NEUTROPHIL CT 5.3 K/uL; LYMPHOCYTE COUNT 1.7 K/uL (1.0-2.8); MCH 29.2 PG (29.0-34.0); MCHC 31.1 G/DL (30.0-36.0); MCV 93.8 FL (83-99); MEAN PLAT.VOLUME 10.4 uM^3 (9.5-12.4); MONOCYTE (%) 12.5 % (3-12); NEUTROPHIL (%) 64.1 % (45-76); NEUTROPHIL COUNT 5.3 K/uL (1.8-6.4); RBC DIS.WIDTH-CV 13.9 % (11.8-14.6); RBC DIS.WIDTH-SD 46.6 % (39-53); RED BLOOD COUNT 3.84 M/uL (3.80-5.20); WHITE BLOOD COUNT 8.3 K/uL (4.1-10.2)
[2016-11-11 11:08] LABS: ALKALINE PHOSPHATASE 127 IU/L (3-129); ANION GAP 10 MEQ/L (2-14); CHLORIDE 101 MEQ/L (99-109); DIRECT BILIRUBIN 0.1 mg/dL (0.0-0.3); GFR ESTIMATE (CALCULATED) 45 mL/min/; GLUCOSE 129 mg/dL (70-99); POTASSIUM 4.9 MEQ/L (3.7-5.4); PREALBUMIN 8.7 mg/dL (10-40); SAMPLE HEMOLYSIS CHECK 2; SAMPLE ICTERIC CHECK 0; SAMPLE LIPEMIA CHECK 0; SODIUM 138 MEQ/L (136-147); TOTAL BILIRUBIN 0.6 MG/DL (0.0-1.0); TRIGLYCERIDES 208 MG/DL (Normal: <150); UREA NITROGEN (BUN) 32 mg/dL (9-23)
[2016-11-11 11:16] LABS: PLATELET COUNT 528 K/uL (156-360)
[2016-11-11 12:07] VITALS: BP 133/55
[2016-11-11 12:24] LABS: POINT-OF-CARE METER ID UU13113725
[2016-11-11 16:04] VITALS: BP 115/67
[2016-11-11 17:00] LABS: POINT-OF-CARE METER ID UU13113725
[2016-11-11 18:13] LABS: POINT-OF-CARE METER ID UU13113725
[2016-11-11 20:36] LABS: POINT-OF-CARE METER ID UU13113725
[2016-11-12 00:13] LABS: POINT-OF-CARE METER ID UU13113725
[2016-11-12 00:40] VITALS: BP 145/70
[2016-11-12 07:22] LABS: ANION GAP 11 MEQ/L (2-14); CHLORIDE 98 MEQ/L (99-109); GFR ESTIMATE (CALCULATED) 45 mL/min/; GLUCOSE 122 mg/dL (70-99); MAGNESIUM 1.8 mg/dl (1.3-2.7); POTASSIUM 4.4 MEQ/L (3.7-5.4); SAMPLE HEMOLYSIS CHECK 0; SAMPLE ICTERIC CHECK 0; SAMPLE LIPEMIA CHECK 0; SODIUM 136 MEQ/L (136-147); UREA NITROGEN (BUN) 30 mg/dL (9-23)
[2016-11-12 08:36] VITALS: BP 135/64
[2016-11-12 16:13] VITALS: BP 139/60
[2016-11-12 22:40] VITALS: BP 150/66
[2016-11-13 06:02] VITALS: BP 115/56
[2016-11-13 07:21] VITALS: BP 179/74
[2016-11-13 07:22] LABS: ANION GAP 10 MEQ/L (2-14); CHLORIDE 99 MEQ/L (99-109); GFR ESTIMATE (CALCULATED) 45 mL/min/; GLUCOSE 120 mg/dL (70-99); MAGNESIUM 1.7 mg/dl (1.3-2.7); POTASSIUM 4.6 MEQ/L (3.7-5.4); SAMPLE HEMOLYSIS CHECK 0; SAMPLE ICTERIC CHECK 0; SAMPLE LIPEMIA CHECK 0; SODIUM 136 MEQ/L (136-147); UREA NITROGEN (BUN) 22 mg/dL (9-23)
[2016-11-13 14:44] VITALS: BP 133/57
[2016-11-13 16:12] VITALS: BP 138/65
[2016-11-13 20:48] LABS: ADD MIUA? YES; BILIRUBIN NEGATIVE; BLOOD MODERATE; COLOR YELLOW ((YELLOW)); GLUCOSE (STRIP) NEGATIVE; KETONES NEGATIVE; LEUKOCYTES NEGATIVE; NITRITE NEGATIVE; PROTEIN (STRIP) NEGATIVE; SPECIFIC GRAVITY 1.015 (1.000-1.030); UROBILINOGEN 0.2 MG/DL (0.2-1.0)
[2016-11-13 21:35] LABS: BACTERIA NONE SEEN /HPF; EPITHELIAL CELLS RARE /HPF; HYALINE CASTS 0-5 /LPF; MUCUS TRACE /LPF; RED BLOOD CELLS 0-5 /HPF (0-5); WHITE BLOOD CELLS 0-5 /HPF (0-5)
[2016-11-13 22:59] VITALS: BP 136/59
[2016-11-14 06:12] VITALS: BP 141/63
[2016-11-14 08:29] VITALS: BP 124/58
[2016-11-14 11:37] LABS: POINT-OF-CARE METER ID UU13113725
[2016-11-14 12:28] VITALS: BP 124/63
[2016-11-14 13:27] LABS: HEMATOCRIT 35.4 % (36.0-46.0); MCH 30.4 PG (29.0-34.0); MCHC 32.8 G/DL (30.0-36.0); MCV 92.7 FL (83-99); MEAN PLAT.VOLUME 10.7 uM^3 (9.5-12.4); PLATELET COUNT 483 K/uL (156-360); RBC DIS.WIDTH-CV 13.8 % (11.8-14.6); RBC DIS.WIDTH-SD 46.6 % (39-53); RED BLOOD COUNT 3.82 M/uL (3.80-5.20)
[2016-11-14 14:27] LABS: ANION GAP 13 MEQ/L (2-14); CHLORIDE 101 MEQ/L (99-109); GFR ESTIMATE (CALCULATED) 56 mL/min/; GLUCOSE 96 mg/dL (70-99); POTASSIUM 4.5 MEQ/L (3.7-5.4); SAMPLE HEMOLYSIS CHECK 0; SAMPLE ICTERIC CHECK 0; SAMPLE LIPEMIA CHECK 0; SODIUM 137 MEQ/L (136-147); UREA NITROGEN (BUN) 29 mg/dL (9-23)
== END 2016-11-14 14:51 | DRG 326 ==
LOC: SDC 05:39 → 4WEST 13:01 → 2SOUTH 13:01 → 2EAST 15:25 → 4WEST 10-26 01:36 → 5EAST 11-06 17:19
PROVIDERS: Hospitalist; Internal Medicine; Internal Medicine Critical Care Medicine; Internal Medicine Nephrology; Internal Medicine Pulmonary Disease; Physician Assistant; Surgery
PROC: 0BUR4JZ (ICD-10-PCS; principal; 2016-10-25)
PROC: 0BUS4JZ (ICD-10-PCS; principal; 2016-10-25)
PROC: 0DV44ZZ Restriction of Esophagogastric Junction, Percutaneous Endoscopic Approach (ICD-10-PCS; principal; 2016-10-25)
PROC: 0DC28ZZ Extirpation of Matter from Middle Esophagus, Via Natural or Artificial Opening Endoscopic (ICD-10-PCS; 2016-10-26)
PROC: 3E1M38Z Irrigation of Peritoneal Cavity using Irrigating Substance, Percutaneous Approach (ICD-10-PCS; 2016-10-26)
PROC: 0DQ34ZZ Repair Lower Esophagus, Percutaneous Endoscopic Approach (ICD-10-PCS; 2016-10-26)
PROC: 0DQ38ZZ Repair Lower Esophagus, Via Natural or Artificial Opening Endoscopic (ICD-10-PCS; 2016-10-26)
PROC: 0DH63UZ Insertion of Feeding Device into Stomach, Percutaneous Approach (ICD-10-PCS; 2016-10-26)
PROC: 0BH17EZ Insertion of Endotracheal Airway into Trachea, Via Natural or Artificial Opening (ICD-10-PCS; 2016-10-28)
PROC: 5A1935Z Respiratory Ventilation, Less than 24 Consecutive Hours (ICD-10-PCS; 2016-10-28)
PROC: 02HV33Z Insertion of Infusion Device into Superior Vena Cava, Percutaneous Approach (ICD-10-PCS; 2016-11-10)
DX: K44.0 Diaphragmatic hernia with obstruction, without gangrene (principal); J96.01 Acute respiratory failure with hypoxia; E43 Unspecified severe protein-calorie malnutrition; I50.21 Acute systolic (congestive) heart failure; K22.3 Perforation of esophagus; N18.3 Chronic kidney disease, stage 3 (moderate); T18.128A Food in esophagus causing other injury, initial encounter; E83.39 Other disorders of phosphorus metabolism; K31.89 Other diseases of stomach and duodenum; I13.0 Hypertensive heart and chronic kidney disease with heart failure and stage 1 through stage 4 chronic kidney disease, or unspecified chronic kidney disease; E78.5 Hyperlipidemia, unspecified; M35.3 Polymyalgia rheumatica; K21.9 Gastro-esophageal reflux disease without esophagitis; R00.0 Tachycardia, unspecified; J20.9 Acute bronchitis, unspecified; D48.5 Neoplasm of uncertain behavior of skin; Z85.3 Personal history of malignant neoplasm of breast; Z90.49 Acquired absence of other specified parts of digestive tract; Z80.6 Family history of leukemia; M19.90 Unspecified osteoarthritis, unspecified site; F32.9 Major depressive disorder, single episode, unspecified; R00.2 Palpitations; K91.81 Other intraoperative complications of digestive system; Y73.3 Surgical instruments, materials and gastroenterology and urology devices (including sutures) associated with adverse incidents; Y92.234 Operating room of hospital as the place of occurrence of the external cause; D64.9 Anemia, unspecified; D72.829 Elevated white blood cell count, unspecified; F05 Delirium due to known physiological condition; X58.XXXA Exposure to other specified factors, initial encounter; J45.909 Unspecified asthma, uncomplicated; E87.0 Hyperosmolality and hypernatremia; E87.6 Hypokalemia; G47.00 Insomnia, unspecified; H35.30 Unspecified macular degeneration; I16.0 Hypertensive urgency; I48.0 Paroxysmal atrial fibrillation; I70.0 Atherosclerosis of aorta; J98.11 Atelectasis; K22.5 Diverticulum of esophagus, acquired; Z66 Do not resuscitate; M54.6 Pain in thoracic spine; R10.30 Lower abdominal pain, unspecified; R11.10 Vomiting, unspecified; K22.4 Dyskinesia of esophagus; T81.82XA Emphysema (subcutaneous) resulting from a procedure, initial encounter; T40.605A Adverse effect of unspecified narcotics, initial encounter; E66.9 Obesity, unspecified; Z68.28 Body mass index [BMI] 28.0-28.9, adult
CPT/HCPCS: 36415; 36600; 71010; 74000; 74220; 76937; 80048; 80053; 80076; 81003; 82150; 82150 91; 82248; 82330; 82803; 82948; 83690; 83735; 84100; 84134; 84478; 84484; 84540; 84630 90; 85025; 85027; 86900; 86901; 87070; 87075; 87086; 87106; 87205; 87641; 88302; 93306; 94002; 94003; 94010; 94640; 94640 76; 94760; 94799; 97530 GO; 97530 GP; 99202; J0295; J0330; J0360; J0744; J1100; J1170; J1200; J1450; J1630; J1644; J1720; J1815; J1885; J1940; J2060; J2185; J2270; J2405; J2543; J2704; J2765; J2930; J2997; J3010; J3475; J3480; J7030; J7040; J7050; J7070; S0028; S0030

== ENCOUNTER 2016-11-25 10:08 | Inpatient (IN) | payer OTHER ==
[~2016-11-25] VITALS: Ht 165.1 cm; Wt 68.8 kg
[~2016-11-25 10:08] MED LIST changes: +FENTANYL1 EAC5 TD; +TRAMADOL HCL E300 M1 PO
[2016-11-25 13:44] LABS: HEMATOCRIT 31.1 % (36.0-46.0); MCH 29.1 PG (29.0-34.0); MCHC 31.8 G/DL (30.0-36.0); MCV 91.5 FL (83-99); RBC DIS.WIDTH-CV 14.2 % (11.8-14.6); RBC DIS.WIDTH-SD 47.8 % (39-53); WHITE BLOOD COUNT 9.2 K/uL (4.1-10.2)
[2016-11-25 13:55] LABS: CHLORIDE 106 mEq/L (99-109); POTASSIUM 3.7 mEq/L (3.7-5.4); SODIUM 137 mEq/L (136-147)
[2016-11-25 13:58] LABS: ANION GAP 12 MEQ/L (2-14)
[2016-11-25 13:59] LABS: GLUCOSE 109 mg/dL (70-99); TOTAL BILIRUBIN 0.6 mg/dL (0.0-1.0)
[2016-11-25 14:00] LABS: ALKALINE PHOSPHATASE 105 IU/L (3-129)
[2016-11-25 14:01] LABS: GFR ESTIMATE (CALCULATED) > 59 mL/min/
[2016-11-25 14:02] LABS: UREA NITROGEN (BUN) 23 mg/dL (9-23)
[2016-11-25 14:02] LABS: ADD MIUA? YES; BILIRUBIN NEGATIVE; BLOOD SMALL; COLOR YELLOW ((YELLOW)); GLUCOSE (STRIP) NEGATIVE; KETONES NEGATIVE; LEUKOCYTES NEGATIVE; NITRITE NEGATIVE; PROTEIN (STRIP) NEGATIVE; SPECIFIC GRAVITY 1.013 (1.000-1.030); UROBILINOGEN 0.2 MG/DL (0.2-1.0)
[2016-11-25 14:04] LABS: LIPASE 7 U/L (1.0-51.0)
[2016-11-25 14:21] LABS: BACTERIA NONE SEEN /HPF; EPITHELIAL CELLS NONE SEEN /HPF; MUCUS TRACE /LPF; WHITE BLOOD CELLS 0-5 /HPF (0-5)
[2016-11-25 14:21] LABS: MEAN PLAT.VOLUME 9.9 uM^3 (9.5-12.4); PLAT.SUFFICIENCY ADEQUATE; PLATELET COUNT 277 K/uL (156-360)
[2016-11-25] MEDS ORDERED: TPN IV (16:04)
[2016-11-25] MEDS ORDERED: LIDODERM 5% P1 PATCH TD (16:06)
[2016-11-25] MEDS ORDERED: MELATONIN5 MG SL (16:07)
[2016-11-25] MEDS ORDERED: TYLENOL650 MG PR (16:08)
[2016-11-25] MEDS ORDERED: DURAGESIC25 MCG TD (16:08)
[2016-11-25 18:05] LABS: POINT-OF-CARE METER ID UU13113702
[2016-11-25 20:00] VITALS: BP 149/67
[2016-11-25 23:41] VITALS: BP 131/92
[2016-11-26 03:58] VITALS: BP 111/49
[2016-11-26 09:08] LABS: HEMATOCRIT 34.7 % (36.0-46.0); MCH 29.1 PG (29.0-34.0); MCHC 31.7 G/DL (30.0-36.0); MCV 91.8 FL (83-99); MEAN PLAT.VOLUME 10.4 uM^3 (9.5-12.4); PLATELET COUNT 234 K/uL (156-360); RBC DIS.WIDTH-CV 14.3 % (11.8-14.6); RBC DIS.WIDTH-SD 48.6 % (39-53); RED BLOOD COUNT 3.78 M/uL (3.80-5.20); WHITE BLOOD COUNT 8.4 K/uL (4.1-10.2)
[2016-11-26 09:45] LABS: ANION GAP 9 MEQ/L (2-14); CHLORIDE 112 MEQ/L (99-109); GFR ESTIMATE (CALCULATED) > 59 mL/min/; GLUCOSE 132 mg/dL (70-99); SAMPLE HEMOLYSIS CHECK 1; SAMPLE ICTERIC CHECK 0; SAMPLE LIPEMIA CHECK 0; SODIUM 140 MEQ/L (136-147); TRIGLYCERIDES 99 MG/DL (Normal: <150); UREA NITROGEN (BUN) 20 mg/dL (9-23)
[2016-11-26 09:54] LABS: POTASSIUM 4.6 MEQ/L (3.7-5.4)
[2016-11-26 09:55] LABS: MAGNESIUM 1.6 mg/dl (1.3-2.7)
[2016-11-26 11:18] VITALS: BP 133/67
[2016-11-26 16:48] VITALS: BP 134/78
[2016-11-26 20:07] VITALS: BP 113/56
[2016-11-27 00:03] VITALS: BP 115/52
[2016-11-27 03:55] VITALS: BP 137/61
[2016-11-27 07:44] VITALS: BP 126/58
[2016-11-27 10:56] VITALS: BP 135/60
[2016-11-27 19:42] VITALS: BP 132/60
[2016-11-27 23:23] VITALS: BP 127/61
[2016-11-28] VITALS (11 sets, daily range): BP systolic 117–190; BP diastolic 54–100
[2016-11-28 12:36] LABS: CARBOXY HGB 0.5 % (0-5); METHEMOGLOBIN 1.3 % (0-1.5); PCO2 30 mm Hg (35-45)
[2016-11-28 12:37] LABS: BICARBONATE 15.8 mEq/L (22-26); COMMENTS - BLOOD GASES A+C+; DEVICE NRBM; FI02 100 %; O2 FLOW 15 L/MIN; PO2 97 mm Hg (80-100); SITE RR; TOTAL RESP RATE 22 resp/min; pH 7.33 (7.35-7.45)
[2016-11-28 13:03] LABS: TROP-I INTERPRETATION NEGATIVE; TROPONIN-I 0.04 ng/mL (0.0-0.30)
[2016-11-28 14:54] LABS: METH RESISTANT S AUREUS PCR NEGATIVE (NEGATIVE)
[2016-11-28 15:34] LABS: PROBE CHECK PASS; SPECIMEN PROCESSING CONTROL PASS
[2016-11-28 17:39] LABS: ANION GAP 11 MEQ/L (2-14); CHLORIDE 110 MEQ/L (99-109); SAMPLE HEMOLYSIS CHECK 0; SAMPLE ICTERIC CHECK 0; SAMPLE LIPEMIA CHECK 0; SODIUM 137 MEQ/L (136-147)
[2016-11-28 17:41] LABS: GFR ESTIMATE (CALCULATED) > 59 mL/min/; GLUCOSE 196 mg/dL (70-99); UREA NITROGEN (BUN) 16 mg/dL (9-23)
[2016-11-28 17:45] LABS: TROP-I INTERPRETATION NEGATIVE; TROPONIN-I 0.05 ng/mL (0.0-0.30)
[2016-11-28 17:46] LABS: POTASSIUM 3.2 MEQ/L (3.7-5.4)
[2016-11-28 19:54] LABS: C DIFF TOXIN NEGATIVE (NEGATIVE)
[2016-11-28 19:55] LABS: PROBE CHECK PASS; SPECIMEN PROCESSING CONTROL PASS
[2016-11-29 06:19] LABS: ANION GAP 9 MEQ/L (2-14); CHLORIDE 111 MEQ/L (99-109); GFR ESTIMATE (CALCULATED) > 59 mL/min/; GLUCOSE 135 mg/dL (70-99); SAMPLE HEMOLYSIS CHECK 0; SAMPLE ICTERIC CHECK 0; SAMPLE LIPEMIA CHECK 0; SODIUM 140 MEQ/L (136-147); UREA NITROGEN (BUN) 16 mg/dL (9-23)
[2016-11-29 06:37] LABS: HEMATOCRIT 25.8 % (36.0-46.0); MCH 29.1 PG (29.0-34.0); MCHC 31.4 G/DL (30.0-36.0); MCV 92.8 FL (83-99); MEAN PLAT.VOLUME 10.2 uM^3 (9.5-12.4); RBC DIS.WIDTH-CV 14.4 % (11.8-14.6); RBC DIS.WIDTH-SD 49.2 % (39-53); WHITE BLOOD COUNT 9.4 K/uL (4.1-10.2)
[2016-11-29 06:43] LABS: ABS NEUTROPHIL COUNT 8.6; BAND NEUTROPHILS 0.9 % (0-8.0); EOSINOPHIL ABS CT 0; INSTRUMENT ABS NEUTROPHIL CT 7.7 K/uL; LYMPHOCYTES 7.9 % (15.0-45.0); PLAT.SUFFICIENCY ADEQUATE; SEG.NEUTROPHILS 90.3 % (46.0-76.0)
[2016-11-29 06:46] LABS: PLATELET COUNT 318 K/uL (156-360); RED BLOOD COUNT 2.78 M/uL (3.80-5.20)
[2016-11-29 08:00] VITALS: BP 132/61
[2016-11-29 10:00] VITALS: BP 113/56
[2016-11-29 12:00] VITALS: BP 123/59
[2016-11-29 16:00] VITALS: BP 124/55
[2016-11-29 18:00] VITALS: BP 189/84
[2016-11-29 19:57] VITALS: BP 133/84
[2016-11-30 00:10] VITALS: BP 168/80
[2016-11-30 04:49] VITALS: BP 168/79
[2016-11-30 06:00] LABS: ANION GAP 11 MEQ/L (2-14); CHLORIDE 106 MEQ/L (99-109); GFR ESTIMATE (CALCULATED) > 59 mL/min/; GLUCOSE 129 mg/dL (70-99); POTASSIUM 4.1 MEQ/L (3.7-5.4); SAMPLE HEMOLYSIS CHECK 0; SAMPLE ICTERIC CHECK 0; SAMPLE LIPEMIA CHECK 0; SODIUM 139 MEQ/L (136-147); UREA NITROGEN (BUN) 21 mg/dL (9-23)
[2016-11-30 08:20] VITALS: BP 162/71
[2016-11-30 11:36] VITALS: BP 182/80
[2016-11-30 14:45] VITALS: BP 151/72
[2016-11-30 20:04] VITALS: BP 186/74
[2016-12-01] VITALS (7 sets, daily range): BP systolic 137–184; BP diastolic 65–85
[2016-12-01 06:28] LABS: HEMATOCRIT 31.3 % (36.0-46.0); MCH 28.6 PG (29.0-34.0); MCHC 32.3 G/DL (30.0-36.0); MEAN PLAT.VOLUME 9.7 uM^3 (9.5-12.4); PLATELET COUNT 411 K/uL (156-360); RBC DIS.WIDTH-CV 14.4 % (11.8-14.6); RBC DIS.WIDTH-SD 46.2 % (39-53); WHITE BLOOD COUNT 11.1 K/uL (4.1-10.2)
[2016-12-01 06:29] LABS: MCV 88.7 FL (83-99); RED BLOOD COUNT 3.53 M/uL (3.80-5.20)
[2016-12-01 06:47] LABS: ALKALINE PHOSPHATASE 78 IU/L (3-129); ANION GAP 11 MEQ/L (2-14); CHLORIDE 101 MEQ/L (99-109); GFR ESTIMATE (CALCULATED) > 59 mL/min/; GLUCOSE 110 mg/dL (70-99); SAMPLE HEMOLYSIS CHECK 0; SAMPLE ICTERIC CHECK 0; SAMPLE LIPEMIA CHECK 0; SODIUM 138 MEQ/L (136-147); UREA NITROGEN (BUN) 21 mg/dL (9-23)
[2016-12-01 06:50] LABS: ANION GAP 12 MEQ/L (2-14); CHLORIDE 101 MEQ/L (99-109); GFR ESTIMATE (CALCULATED) > 59 mL/min/; GLUCOSE 112 mg/dL (70-99); SAMPLE HEMOLYSIS CHECK 0; SAMPLE ICTERIC CHECK 0; SAMPLE LIPEMIA CHECK 0; SODIUM 139 MEQ/L (136-147); UREA NITROGEN (BUN) 22 mg/dL (9-23)
[2016-12-01 07:00] LABS: TOTAL BILIRUBIN 0.5 MG/DL (0.0-1.0)
[2016-12-02 04:09] VITALS: BP 106/47
[2016-12-02 08:20] VITALS: BP 129/58
[2016-12-02 11:35] VITALS: BP 122/56
[2016-12-02 13:07] VITALS: BP 121/54
[2016-12-02 13:44] LABS: METHEMOGLOBIN 1.3 % (0-1.5); pH 7.41 (7.35-7.45)
[2016-12-02 13:46] LABS: BICARBONATE 22.2 mEq/L (22-26); COMMENTS - BLOOD GASES A+C+; DEVICE NC; O2 FLOW 1 L/MIN; PCO2 35 mm Hg (35-45); PO2 70 mm Hg (80-100); SITE LRA; TOTAL RESP RATE 18 resp/min
[2016-12-02 15:05] VITALS: BP 126/61
[2016-12-02 15:05] LABS: ANION GAP 10 MEQ/L (2-14); CHLORIDE 101 MEQ/L (99-109); GFR ESTIMATE (CALCULATED) 33 mL/min/; GLUCOSE 107 mg/dL (70-99); SAMPLE HEMOLYSIS CHECK 0; SAMPLE ICTERIC CHECK 0; SAMPLE LIPEMIA CHECK 0; SODIUM 135 MEQ/L (136-147); UREA NITROGEN (BUN) 27 mg/dL (9-23)
[2016-12-02 23:59] VITALS: BP 130/61
[2016-12-03 06:45] LABS: ANION GAP 8 MEQ/L (2-14); CHLORIDE 105 MEQ/L (99-109); GFR ESTIMATE (CALCULATED) 38 mL/min/; GLUCOSE 89 mg/dL (70-99); SAMPLE HEMOLYSIS CHECK 1; SAMPLE ICTERIC CHECK 0; SAMPLE LIPEMIA CHECK 0; SODIUM 136 MEQ/L (136-147); UREA NITROGEN (BUN) 24 mg/dL (9-23)
[2016-12-03 06:50] LABS: POTASSIUM 4.2 MEQ/L (3.7-5.4)
[2016-12-03 08:10] VITALS: BP 132/59
[2016-12-03 13:20] LABS: ANION GAP 10 MEQ/L (2-14); CHLORIDE 106 MEQ/L (99-109); GFR ESTIMATE (CALCULATED) 50 mL/min/; POTASSIUM 4.2 MEQ/L (3.7-5.4); SAMPLE HEMOLYSIS CHECK 0; SAMPLE ICTERIC CHECK 0; SAMPLE LIPEMIA CHECK 0; SODIUM 137 MEQ/L (136-147); UREA NITROGEN (BUN) 22 mg/dL (9-23)
[2016-12-03 13:21] LABS: GLUCOSE 138 mg/dL (70-99)
[2016-12-03 18:13] LABS: C DIFF TOXIN ND (NEGATIVE)
[2016-12-03 18:31] VITALS: BP 153/63
[2016-12-03 23:01] VITALS: BP 168/79
[2016-12-04 06:50] VITALS: BP 178/62
[2016-12-04] MEDS ORDERED: LOPERAMIDE2 MG PO (13:43)
[2016-12-04] MEDS ORDERED: LORATADINE10 M2 PO (13:43)
[2016-12-04] MEDS ORDERED: LOSARTAN POTASS50 MG PO (13:43)
== END 2016-12-04 15:30 | disposition home health service (06) | DRG 193 ==
LOC: EME 10:08 → EDOF 16:15 → 3EAST 16:15 → 2EAST 16:15 → 3EAST 19:36 → ENRESERV 11-28 12:35 → 3EAST 11-28 12:35 → ENRESERV 11-28 12:44 → 4WEST 11-28 12:46 → ENRESERV 11-29 16:51 → 4EAST 11-29 17:45 → ENRESERV 11-30 13:01 → 2EAST 11-30 14:32
PROVIDERS: Emergency Medicine; Hospitalist; Internal Medicine; Internal Medicine Critical Care Medicine
DX: J18.9 Pneumonia, unspecified organism (principal); E43 Unspecified severe protein-calorie malnutrition; J96.00 Acute respiratory failure, unspecified whether with hypoxia or hypercapnia; I50.30 Unspecified diastolic (congestive) heart failure; J98.11 Atelectasis; E87.4 Mixed disorder of acid-base balance; F33.9 Major depressive disorder, recurrent, unspecified; Z66 Do not resuscitate; J90 Pleural effusion, not elsewhere classified; L53.9 Erythematous condition, unspecified; E78.5 Hyperlipidemia, unspecified; I11.0 Hypertensive heart disease with heart failure; I48.91 Unspecified atrial fibrillation; K21.9 Gastro-esophageal reflux disease without esophagitis; E87.8 Other disorders of electrolyte and fluid balance, not elsewhere classified; L27.1 Localized skin eruption due to drugs and medicaments taken internally; T36.1X5A Adverse effect of cephalosporins and other beta-lactam antibiotics, initial encounter; M79.7 Fibromyalgia; Y92.230 Patient room in hospital as the place of occurrence of the external cause; K44.9 Diaphragmatic hernia without obstruction or gangrene; M19.90 Unspecified osteoarthritis, unspecified site; K22.5 Diverticulum of esophagus, acquired; I34.0 Nonrheumatic mitral (valve) insufficiency; R19.7 Diarrhea, unspecified; E66.9 Obesity, unspecified; Z93.1 Gastrostomy status; I25.2 Old myocardial infarction; Z68.26 Body mass index [BMI] 26.0-26.9, adult; Z79.82 Long term (current) use of aspirin; Z87.442 Personal history of urinary calculi; Z90.11 Acquired absence of right breast and nipple; Z90.49 Acquired absence of other specified parts of digestive tract; Z88.1 Allergy status to other antibiotic agents; Z88.3 Allergy status to other anti-infective agents; Z88.6 Allergy status to analgesic agent; Z80.0 Family history of malignant neoplasm of digestive organs; Z80.49 Family history of malignant neoplasm of other genital organs; Z82.49 Family history of ischemic heart disease and other diseases of the circulatory system; Z80.6 Family history of leukemia
CPT/HCPCS: 36600; 71010; 71260; 74177; 80048; 80048 91; 80053; 81003; 82803; 82948; 83605; 83690; 83735; 83880; 84100; 84134; 84478; 84484; 85025; 85027; 87040; 87086; 87493; 87641; 92610 GN; 93005; 93970; 94003; 94640; 94640 76; 94799; 99202; 99281; 99285; J0692; J1200; J1650; J1885; J1940; J1956; J2543; J2920; J2930; J2997; J7030; J7050; Q0177

== ENCOUNTER 2017-01-04 12:56 | Emergency (ER) | payer OTHER ==
[~2017-01-04] VITALS: Ht 157.5 cm; Wt 63.4 kg
[~2017-01-04 12:56] MED LIST changes: +DURAGESIC25 MCG TD; +LIDODERM 5% P1 PATCH TD; +LOPERAMIDE2 MG PO; +LORATADINE10 M2 PO; +LOSARTAN POTASS50 MG PO; +MELATONIN5 MG SL; +TPN IV; +TYLENOL650 MG PR
[2017-01-04] MEDS ORDERED: METOPROLOL TART25 MG PO (13:05)
[2017-01-04] MEDS ORDERED: CYMBALTA30 MG PO (13:06)
[2017-01-04] MEDS ORDERED: TRAMADOL HCL300 MG PO (13:06)
[2017-01-04] MEDS ORDERED: PROTONIX40 MG PO (13:07)
[2017-01-04] MEDS ORDERED: HYZAAR 50-121 TABLET PO (13:08)
[2017-01-04 14:35] LABS: HEMATOCRIT 36.7 % (36.0-46.0); MCH 28.8 PG (29.0-34.0); MCHC 31.6 G/DL (30.0-36.0); MCV 91.1 FL (83-99); PLATELET COUNT 303 K/uL (156-360); RBC DIS.WIDTH-CV 14.3 % (11.8-14.6); RED BLOOD COUNT 4.03 M/uL (3.80-5.20); WHITE BLOOD COUNT 6.5 K/uL (4.1-10.2)
[2017-01-04 15:26] LABS: CHLORIDE 96 mEq/L (99-109); POTASSIUM 3.4 mEq/L (3.7-5.4); SODIUM 136 mEq/L (136-147)
[2017-01-04 15:29] LABS: GLUCOSE 98 mg/dL (70-99)
[2017-01-04 15:30] LABS: ANION GAP 13 MEQ/L (2-14); TOTAL BILIRUBIN 0.5 mg/dL (0.0-1.0)
[2017-01-04 15:32] LABS: ALKALINE PHOSPHATASE 84 IU/L (3-129); GFR ESTIMATE (CALCULATED) 50 mL/min/
[2017-01-04 15:33] LABS: UREA NITROGEN (BUN) 15 mg/dL (9-23)
[2017-01-04 15:36] LABS: LIPASE 5 U/L (1.0-51.0)
[2017-01-04 17:47] LABS: ADD MIUA? YES; BILIRUBIN NEGATIVE; BLOOD MODERATE; COLOR YELLOW ((YELLOW)); GLUCOSE (STRIP) NEGATIVE; KETONES NEGATIVE; LEUKOCYTES TRACE; NITRITE NEGATIVE; PROTEIN (STRIP) NEGATIVE; SPECIFIC GRAVITY 1.027 (1.000-1.030); UROBILINOGEN 0.2 MG/DL (0.2-1.0)
[2017-01-04 17:50] LABS: BACTERIA RARE /HPF; EPITHELIAL CELLS RARE /HPF; HYALINE CASTS 0-5 /LPF; MUCUS NONE SEEN /LPF; UCUL ADDED? YES
[2017-01-04] MEDS ORDERED: CIPRO500 MG PO (18:08)
[2017-01-04 18:45] VITALS: BP 149/66
== END 2017-01-04 21:17 | disposition home or self-care (01) ==
LOC: EME 12:56
PROVIDERS: Emergency Medicine
DX: K52.9 Noninfective gastroenteritis and colitis, unspecified (principal); K22.5 Diverticulum of esophagus, acquired; K44.9 Diaphragmatic hernia without obstruction or gangrene; Z98.890 Other specified postprocedural states; M25.551 Pain in right hip; Z91.81 History of falling; I10 Essential (primary) hypertension; E78.5 Hyperlipidemia, unspecified; M79.7 Fibromyalgia; F41.9 Anxiety disorder, unspecified; F32.9 Major depressive disorder, single episode, unspecified; K21.9 Gastro-esophageal reflux disease without esophagitis; Z85.3 Personal history of malignant neoplasm of breast; Z90.11 Acquired absence of right breast and nipple
CPT/HCPCS: 70450; 71020; 71260; 73610; 74177; 80053; 81003; 83605; 83690; 85027; 87086; 99281; 99285; J7030

== ENCOUNTER 2017-01-07 15:24 | Observation (INO) | payer OTHER ==
[~2017-01-07] VITALS: Ht 157.5 cm; Wt 63.4 kg
[~2017-01-07 15:24] MED LIST changes: +CIPRO500 MG PO; +CYMBALTA30 MG PO; +HYZAAR 50-121 TABLET PO; +PROTONIX40 MG PO; +TRAMADOL HCL300 MG PO
[2017-01-07 16:28] LABS: HEMATOCRIT 35.9 % (36.0-46.0); MCH 29.1 PG (29.0-34.0); MCHC 32.9 G/DL (30.0-36.0); MCV 88.4 FL (83-99); MEAN PLAT.VOLUME 9.1 uM^3 (9.5-12.4); PLATELET COUNT 300 K/uL (156-360); RBC DIS.WIDTH-CV 13.7 % (11.8-14.6); RED BLOOD COUNT 4.06 M/uL (3.80-5.20); WHITE BLOOD COUNT 4.8 K/uL (4.1-10.2)
[2017-01-07 16:36] LABS: CHLORIDE 97 mEq/L (99-109)
[2017-01-07 16:37] LABS: POTASSIUM 3.3 mEq/L (3.7-5.4); SODIUM 136 mEq/L (136-147)
[2017-01-07 16:39] LABS: GLUCOSE 110 mg/dL (70-99)
[2017-01-07 16:40] LABS: ANION GAP 11 MEQ/L (2-14)
[2017-01-07 16:41] LABS: TOTAL BILIRUBIN 0.5 mg/dL (0.0-1.0)
[2017-01-07 16:42] LABS: ALKALINE PHOSPHATASE 73 IU/L (3-129)
[2017-01-07 16:43] LABS: GFR ESTIMATE (CALCULATED) > 59 mL/min/
[2017-01-07 16:44] LABS: DIRECT BILIRUBIN 0.2 mg/dL (0.0-0.3); UREA NITROGEN (BUN) 6 mg/dL (9-23)
[2017-01-07 16:46] LABS: LIPASE 6 U/L (1.0-51.0)
[2017-01-07] MEDS ORDERED: COZAAR25 MG PO (19:29)
[2017-01-07] MEDS ORDERED: ONDANSETRON ODT8 MG PO (19:30)
[2017-01-07 19:45] LABS: ADD MIUA? YES; BILIRUBIN NEGATIVE; BLOOD MODERATE; COLOR STRAW ((YELLOW)); GLUCOSE (STRIP) NEGATIVE; KETONES 5; LEUKOCYTES NEGATIVE; NITRITE NEGATIVE; PROTEIN (STRIP) NEGATIVE; SPECIFIC GRAVITY 1.006 (1.000-1.030); UROBILINOGEN 0.2 MG/DL (0.2-1.0)
[2017-01-07 19:50] LABS: BACTERIA NONE SEEN /HPF; EPITHELIAL CELLS RARE /HPF; MUCUS TRACE /LPF; RED BLOOD CELLS 0-5 /HPF (0-5); UCUL ADDED? NO; WHITE BLOOD CELLS 0-5 /HPF (0-5)
[2017-01-07 20:37] VITALS: BP 157/76
[2017-01-08] VITALS: BP 134/64
[2017-01-08 04:01] VITALS: BP 119/63
[2017-01-08 06:15] LABS: ANION GAP 10 MEQ/L (2-14); CHLORIDE 100 MEQ/L (99-109); GFR ESTIMATE (CALCULATED) > 59 mL/min/; POTASSIUM 3.1 MEQ/L (3.7-5.4); SAMPLE HEMOLYSIS CHECK 0; SAMPLE ICTERIC CHECK 0; SAMPLE LIPEMIA CHECK 0; SODIUM 137 MEQ/L (136-147); UREA NITROGEN (BUN) 4 mg/dL (9-23)
[2017-01-08 06:35] LABS: HEMATOCRIT 34.9 % (36.0-46.0); MCH 28.4 PG (29.0-34.0); MCHC 31.5 G/DL (30.0-36.0); MCV 90.2 FL (83-99); MEAN PLAT.VOLUME 9.5 uM^3 (9.5-12.4); PLATELET COUNT 296 K/uL (156-360); RBC DIS.WIDTH-SD 46.7 % (39-53); RED BLOOD COUNT 3.87 M/uL (3.80-5.20); WHITE BLOOD COUNT 4.9 K/uL (4.1-10.2)
[2017-01-08 06:40] LABS: GLUCOSE 81 mg/dL (70-99)
[2017-01-08 07:25] VITALS: BP 188/90
[2017-01-08 10:13] LABS: MAGNESIUM 1.3 mg/dl (1.3-2.7)
[2017-01-08 11:50] VITALS: BP 129/61
== END 2017-01-08 16:24 | disposition home or self-care (01) ==
LOC: EME 15:24 → EDOF 18:39 → ENRESERV 18:39 → 5WEST 18:39 → ENRESERV 19:11 → 5WEST 20:07
PROVIDERS: Emergency Medicine; Hospitalist
DX: R11.2 Nausea with vomiting, unspecified (principal); R19.7 Diarrhea, unspecified; E86.0 Dehydration; E87.6 Hypokalemia; I10 Essential (primary) hypertension; K21.9 Gastro-esophageal reflux disease without esophagitis; F32.9 Major depressive disorder, single episode, unspecified; G89.29 Other chronic pain; M25.569 Pain in unspecified knee; Z82.49 Family history of ischemic heart disease and other diseases of the circulatory system; Z88.1 Allergy status to other antibiotic agents
CPT/HCPCS: 74176; 80048; 80076; 81003; 83690; 83735; 85027; 87493; 87506; 93005; 99281; 99285; G0378; J1644; J2405; J2765; J7030; S0028

== ENCOUNTER 2017-01-13 11:36 | Emergency (ER) | payer OTHER ==
[~2017-01-13] VITALS: Ht 160 cm; Wt 52.8 kg
[~2017-01-13 11:36] MED LIST changes: +ONDANSETRON ODT8 MG PO
[2017-01-13 12:25] LABS: HEMATOCRIT 37.2 % (36.0-46.0); MCH 29.2 PG (29.0-34.0); MCV 91.4 FL (83-99); MEAN PLAT.VOLUME 9.4 uM^3 (9.5-12.4); PLATELET COUNT 302 K/uL (156-360); RBC DIS.WIDTH-CV 14.2 % (11.8-14.6); RBC DIS.WIDTH-SD 47.8 % (39-53); RED BLOOD COUNT 4.07 M/uL (3.80-5.20); WHITE BLOOD COUNT 6.4 K/uL (4.1-10.2)
[2017-01-13 12:39] LABS: CHLORIDE 99 mEq/L (99-109); POTASSIUM 3.6 mEq/L (3.7-5.4); SODIUM 136 mEq/L (136-147)
[2017-01-13 12:41] LABS: GLUCOSE 101 mg/dL (70-99)
[2017-01-13 12:42] LABS: ANION GAP 13 MEQ/L (2-14)
[2017-01-13 12:43] LABS: TOTAL BILIRUBIN 0.5 mg/dL (0.0-1.0)
[2017-01-13 12:45] LABS: ALKALINE PHOSPHATASE 78 IU/L (3-129); GFR ESTIMATE (CALCULATED) 56 mL/min/
[2017-01-13 12:46] LABS: UREA NITROGEN (BUN) 8 mg/dL (9-23)
[2017-01-13 12:48] LABS: LIPASE 4 U/L (1.0-51.0)
[2017-01-13 14:10] LABS: ADD MIUA? YES; BILIRUBIN NEGATIVE; BLOOD MODERATE; COLOR STRAW ((YELLOW)); GLUCOSE (STRIP) NEGATIVE; KETONES NEGATIVE; LEUKOCYTES NEGATIVE; NITRITE NEGATIVE; PROTEIN (STRIP) NEGATIVE; SPECIFIC GRAVITY 1.013 (1.000-1.030); UROBILINOGEN 0.2 MG/DL (0.2-1.0)
[2017-01-13 14:15] LABS: BACTERIA NONE SEEN /HPF; EPITHELIAL CELLS NONE SEEN /HPF; MUCUS TRACE /LPF; UCUL ADDED? NO; WHITE BLOOD CELLS 0-5 /HPF (0-5)
[2017-01-13] MEDS ORDERED: ZANTAC150 MG PO (14:49)
[2017-01-13 15:59] VITALS: BP 165/71
== END 2017-01-13 16:01 | disposition home or self-care (01) ==
LOC: EME 11:36
DX: K29.70 Gastritis, unspecified, without bleeding (principal); R31.9 Hematuria, unspecified; M79.7 Fibromyalgia; K21.9 Gastro-esophageal reflux disease without esophagitis; I10 Essential (primary) hypertension; E78.5 Hyperlipidemia, unspecified; Z87.442 Personal history of urinary calculi
CPT/HCPCS: 74177; 80053; 81003; 83690; 85027; 99281; 99285; J2270; J2405; J7030

== ENCOUNTER 2017-01-19 14:04 | Inpatient (IN) | payer OTHER ==
[~2017-01-19] VITALS: Ht 157.5 cm; Wt 61.9 kg
[~2017-01-19 14:04] MED LIST changes: +ZANTAC150 MG PO
[2017-01-19 15:17] LABS: BASOPHIL COUNT 0.1 K/uL (0-0.1); EOSINOPHIL (%) 0.9 % (0-5); EOSINOPHIL COUNT 0.1 K/uL (0-0.3); HEMATOCRIT 41.2 % (36.0-46.0); IMMATURE GRANULOCYTE (%) 0.5 % (0.0-0.7); IMMATURE GRANULOCYTE COUNT 0.1 K/uL; LYMPHOCYTE COUNT 1.5 K/uL (1.0-2.8); MCH 28.8 PG (29.0-34.0); MCHC 32.3 G/DL (30.0-36.0); MCV 89.2 FL (83-99); MEAN PLAT.VOLUME 9.3 uM^3 (9.5-12.4); MONOCYTE COUNT 1.3 K/uL (0-0.8); NEUTROPHIL (%) 72.7 % (45-76); RBC DIS.WIDTH-CV 14.5 % (11.8-14.6); RBC DIS.WIDTH-SD 46.7 % (39-53); RED BLOOD COUNT 4.62 M/uL (3.80-5.20)
[2017-01-19 15:18] LABS: PLATELET COUNT 400 K/uL (156-360)
[2017-01-19 15:26] LABS: CHLORIDE 96 mEq/L (99-109); POTASSIUM 3.8 mEq/L (3.7-5.4); SODIUM 135 mEq/L (136-147)
[2017-01-19 15:28] LABS: GLUCOSE 132 mg/dL (70-99)
[2017-01-19 15:29] LABS: ANION GAP 15 MEQ/L (2-14)
[2017-01-19 15:30] LABS: TOTAL BILIRUBIN 0.6 mg/dL (0.0-1.0)
[2017-01-19 15:32] LABS: ALKALINE PHOSPHATASE 78 IU/L (3-129); GFR ESTIMATE (CALCULATED) 41 mL/min/
[2017-01-19 15:33] LABS: UREA NITROGEN (BUN) 14 mg/dL (9-23)
[2017-01-19 15:35] LABS: LIPASE 6 U/L (1.0-51.0)
[2017-01-19 15:38] LABS: TROP-I INTERPRETATION NEGATIVE; TROPONIN-I 0.13 ng/mL (0.0-0.30)
[2017-01-19] MEDS ORDERED: PROMETHAZINE HC25 M1 PO (17:06)
[2017-01-19 19:09] LABS: ADD MIUA? YES; BILIRUBIN NEGATIVE; BLOOD MODERATE; COLOR YELLOW ((YELLOW)); GLUCOSE (STRIP) NEGATIVE; KETONES NEGATIVE; LEUKOCYTES MODERATE; NITRITE NEGATIVE; PROTEIN (STRIP) 30; SPECIFIC GRAVITY 1.025 (1.000-1.030); UROBILINOGEN 0.2 MG/DL (0.2-1.0)
[2017-01-19 19:38] LABS: BACTERIA NONE SEEN /HPF; EPITHELIAL CELLS RARE /HPF; HYALINE CASTS 30-40 /LPF; MUCUS TRACE /LPF; UCUL ADDED? YES; WHITE BLOOD CELLS 15-20 /HPF (0-5)
[2017-01-19 20:00] LABS: CASTS PRESENT /LPF
[2017-01-19 20:01] LABS: MAGNESIUM 1.7 mg/dL (1.3-2.7)
[2017-01-19 20:08] LABS: OTHER BUDDING YEAST 2+
[2017-01-19 20:15] VITALS: BP 184/82
[2017-01-19 20:25] VITALS: BP 171/79
[2017-01-19 21:15] LABS: INTACT PARATHYROID HORMONE 48 pg/mL (10-69)
[2017-01-19 21:56] LABS: ANION GAP 9 MEQ/L (2-14); CHLORIDE 98 MEQ/L (99-109); GFR ESTIMATE (CALCULATED) 56 mL/min/; GLUCOSE 123 mg/dL (70-99); POTASSIUM 3.4 MEQ/L (3.7-5.4); SAMPLE HEMOLYSIS CHECK 0; SAMPLE ICTERIC CHECK 0; SAMPLE LIPEMIA CHECK 0; SODIUM 134 MEQ/L (136-147); UREA NITROGEN (BUN) 13 mg/dL (9-23)
[2017-01-19 21:58] LABS: TROP-I INTERPRETATION NEGATIVE; TROPONIN-I 0.16 ng/mL (0.0-0.30)
[2017-01-19 23:25] VITALS: BP 138/66
[2017-01-20 03:05] LABS: HEMATOCRIT 35.2 % (36.0-46.0); MCH 29.1 PG (29.0-34.0); MCHC 32.4 G/DL (30.0-36.0); MCV 89.8 FL (83-99); MEAN PLAT.VOLUME 9.1 uM^3 (9.5-12.4); PLATELET COUNT 346 K/uL (156-360); RBC DIS.WIDTH-CV 14.5 % (11.8-14.6); RBC DIS.WIDTH-SD 47.4 % (39-53); RED BLOOD COUNT 3.92 M/uL (3.80-5.20); WHITE BLOOD COUNT 7.2 K/uL (4.1-10.2)
[2017-01-20 03:28] LABS: TROP-I INTERPRETATION NEGATIVE; TROPONIN-I 0.16 ng/mL (0.0-0.30)
[2017-01-20 03:42] LABS: CHLORIDE 100 mEq/L (99-109); POTASSIUM 3.5 mEq/L (3.7-5.4); SODIUM 138 mEq/L (136-147)
[2017-01-20 03:44] LABS: GLUCOSE 102 mg/dL (70-99)
[2017-01-20 03:45] LABS: ANION GAP 14 MEQ/L (2-14)
[2017-01-20 03:48] LABS: GFR ESTIMATE (CALCULATED) > 59 mL/min/
[2017-01-20 03:49] VITALS: BP 123/69
[2017-01-20 03:49] LABS: UREA NITROGEN (BUN) 12 mg/dL (9-23)
[2017-01-20 08:00] VITALS: BP 171/96
[2017-01-20 11:10] VITALS: BP 119/95
[2017-01-20 15:06] VITALS: BP 168/79
[2017-01-20 20:13] VITALS: BP 149/68
[2017-01-21] VITALS (7 sets, daily range): BP systolic 138–168; BP diastolic 69–81
[2017-01-21 11:42] LABS: ADD MIUA? YES; BILIRUBIN NEGATIVE; BLOOD MODERATE; COLOR YELLOW ((YELLOW)); GLUCOSE (STRIP) NEGATIVE; KETONES NEGATIVE; LEUKOCYTES LARGE; NITRITE NEGATIVE; PROTEIN (STRIP) NEGATIVE; SPECIFIC GRAVITY 1.011 (1.000-1.030); UROBILINOGEN 0.2 MG/DL (0.2-1.0)
[2017-01-21 12:28] LABS: BACTERIA RARE /HPF; BUDDING YEAST 1+; EPITHELIAL CELLS NONE SEEN /HPF; HYALINE CASTS 0-5 /LPF; MUCUS NONE SEEN /LPF; WHITE BLOOD CELLS 20-30 /HPF (0-5)
[2017-01-22 08:06] VITALS: BP 184/86
[2017-01-22 11:31] VITALS: BP 147/68
[2017-01-22 15:40] VITALS: BP 127/65
[2017-01-22 23:41] VITALS: BP 144/74
[2017-01-23 07:31] LABS: ANION GAP 6 MEQ/L (2-14); CHLORIDE 107 MEQ/L (99-109); GFR ESTIMATE (CALCULATED) 50 mL/min/; GLUCOSE 91 mg/dL (70-99); POTASSIUM 3.9 MEQ/L (3.7-5.4); SAMPLE HEMOLYSIS CHECK 0; SAMPLE ICTERIC CHECK 0; SAMPLE LIPEMIA CHECK 0; SODIUM 140 MEQ/L (136-147); UREA NITROGEN (BUN) 4 mg/dL (9-23)
[2017-01-23 08:22] VITALS: BP 133/67
[2017-01-23 09:34] LABS: EOSINOPHIL (%) 5.3 % (0-5); EOSINOPHIL COUNT 0.2 K/uL (0-0.3); HEMATOCRIT 34.6 % (36.0-46.0); IMMATURE GRANULOCYTE (%) 0.2 % (0.0-0.7); INSTRUMENT ABS NEUTROPHIL CT 2.1 K/uL; LYMPHOCYTE COUNT 1.4 K/uL (1.0-2.8); MCHC 32.1 G/DL (30.0-36.0); MCV 93.5 FL (83-99); MEAN PLAT.VOLUME 10.5 uM^3 (9.5-12.4); MONOCYTE (%) 16.1 % (3-12); MONOCYTE COUNT 0.7 K/uL (0-0.8); NEUTROPHIL (%) 46.9 % (45-76); NEUTROPHIL COUNT 2.1 K/uL (1.8-6.4); PLATELET COUNT 299 K/uL (156-360); RBC DIS.WIDTH-CV 14.6 % (11.8-14.6); RBC DIS.WIDTH-SD 50.1 % (39-53); WHITE BLOOD COUNT 4.5 K/uL (4.1-10.2)
[2017-01-23 15:54] VITALS: BP 156/70
[2017-01-23 23:40] VITALS: BP 160/74
[2017-01-24 06:31] LABS: EOSINOPHIL (%) 6.9 % (0-5); EOSINOPHIL COUNT 0.3 K/uL (0-0.3); IMMATURE GRANULOCYTE (%) 0.5 % (0.0-0.7); INSTRUMENT ABS NEUTROPHIL CT 1.8 K/uL; LYMPHOCYTE COUNT 1.6 K/uL (1.0-2.8); MCH 28.7 PG (29.0-34.0); MCHC 30.6 G/DL (30.0-36.0); MCV 93.7 FL (83-99); MEAN PLAT.VOLUME 9.3 uM^3 (9.5-12.4); MONOCYTE (%) 15.4 % (3-12); MONOCYTE COUNT 0.7 K/uL (0-0.8); NEUTROPHIL (%) 40.8 % (45-76); NEUTROPHIL COUNT 1.8 K/uL (1.8-6.4); NRBC (%) 0.5 /100 WBC (0-0); PLATELET COUNT 297 K/uL (156-360); RBC DIS.WIDTH-CV 14.6 % (11.8-14.6); RBC DIS.WIDTH-SD 50.6 % (39-53); RED BLOOD COUNT 3.63 M/uL (3.80-5.20); WHITE BLOOD COUNT 4.3 K/uL (4.1-10.2)
[2017-01-24 06:48] LABS: CHLORIDE 109 MEQ/L (99-109); GFR ESTIMATE (CALCULATED) 56 mL/min/; GLUCOSE 93 mg/dL (70-99); POTASSIUM 4.1 MEQ/L (3.7-5.4); SODIUM 138 MEQ/L (136-147); UREA NITROGEN (BUN) 7 mg/dL (9-23)
[2017-01-24 07:18] LABS: ANION GAP 10 MEQ/L (2-14); SAMPLE HEMOLYSIS CHECK 0; SAMPLE ICTERIC CHECK 0; SAMPLE LIPEMIA CHECK 0
[2017-01-24 07:47] VITALS: BP 143/85
[2017-01-24] MEDS ORDERED: ONDANSETRON ODT8 MG PO (13:14)
[2017-01-24] MEDS ORDERED: PROTONIX40 MG PO (13:16)
[2017-01-24] MEDS ORDERED: PRAVACHOL40 MG PO (13:26)
== END 2017-01-24 13:50 | disposition home health service (06) | DRG 391 ==
LOC: EME 14:04 → EDOF 18:53 → 5SOUTH 18:53 → ENRESERV 18:55 → 5SOUTH 19:50
PROVIDERS: Emergency Medicine; Hospitalist; Internal Medicine
DX: K21.0 Gastro-esophageal reflux disease with esophagitis (principal); E83.52 Hypercalcemia; E86.0 Dehydration; E87.6 Hypokalemia; F05 Delirium due to known physiological condition; F03.90 Unspecified dementia, unspecified severity, without behavioral disturbance, psychotic disturbance, mood disturbance, and anxiety; J98.51 Mediastinitis; E78.5 Hyperlipidemia, unspecified; I10 Essential (primary) hypertension; M79.7 Fibromyalgia; R09.02 Hypoxemia; F32.9 Major depressive disorder, single episode, unspecified; F41.9 Anxiety disorder, unspecified; G89.29 Other chronic pain; Z66 Do not resuscitate; Z85.3 Personal history of malignant neoplasm of breast
CPT/HCPCS: 70450; 70551; 71020; 71250; 74177; 80048; 80048 91; 80053; 81003; 82330; 82607; 82746; 83605; 83690; 83735; 83970; 84100; 84443; 84484; 85025; 85027; 87086; 87106; 93005; 94799; 97530 GP; 99281; 99285; C9113; J0744; J1644; J2405; J7030; J7120

== ENCOUNTER 2017-01-29 17:00 | Inpatient (IN) | payer OTHER ==
[~2017-01-29] VITALS: Ht 157.5 cm; Wt 62.5 kg
[~2017-01-29 17:00] MED LIST changes: +PRAVACHOL40 MG PO; +PROMETHAZINE HC25 M1 PO
[2017-01-29 17:34] LABS: HEMATOCRIT 35.4 % (36.0-46.0); MCH 29.6 PG (29.0-34.0); MCHC 33.1 G/DL (30.0-36.0); MCV 89.6 FL (83-99); MEAN PLAT.VOLUME 8.9 uM^3 (9.5-12.4); PLATELET COUNT 313 K/uL (156-360); RBC DIS.WIDTH-CV 14.2 % (11.8-14.6); RBC DIS.WIDTH-SD 46.6 % (39-53); RED BLOOD COUNT 3.95 M/uL (3.80-5.20)
[2017-01-29 17:45] LABS: CHLORIDE 98 mEq/L (99-109); POTASSIUM 3.5 mEq/L (3.7-5.4); SODIUM 135 mEq/L (136-147)
[2017-01-29 17:48] LABS: GLUCOSE 114 mg/dL (70-99)
[2017-01-29 17:49] LABS: ANION GAP 12 MEQ/L (2-14); TOTAL BILIRUBIN 0.5 mg/dL (0.0-1.0)
[2017-01-29 17:51] LABS: ALKALINE PHOSPHATASE 69 IU/L (3-129); GFR ESTIMATE (CALCULATED) 56 mL/min/
[2017-01-29 17:52] LABS: UREA NITROGEN (BUN) 9 mg/dL (9-23)
[2017-01-29 17:54] LABS: CREATINE KINASE 16 IU/L (1-294); TOTAL CK 16 IU/L (1-294)
[2017-01-29 18:00] LABS: CK-MB 1.5 ng/mL (0.0-4.9)
[2017-01-29 18:00] LABS: TROP-I INTERPRETATION NEGATIVE; TROPONIN-I 0.07 ng/mL (0.0-0.30)
[2017-01-29 19:24] LABS: ADD MIUA? YES; BILIRUBIN NEGATIVE; BLOOD MODERATE; COLOR YELLOW ((YELLOW)); GLUCOSE (STRIP) NEGATIVE; KETONES NEGATIVE; LEUKOCYTES SMALL; NITRITE NEGATIVE; PROTEIN (STRIP) NEGATIVE; UROBILINOGEN 0.2 MG/DL (0.2-1.0)
[2017-01-29 19:33] LABS: BACTERIA RARE /HPF; EPITHELIAL CELLS RARE /HPF; MUCUS TRACE /LPF; RED BLOOD CELLS 0-5 /HPF (0-5); UCUL ADDED? YES; WHITE BLOOD CELLS 15-20 /HPF (0-5); WHITE BLOOD CELLS CLUMP FEW /HPF (0-5)
[2017-01-29] MEDS ORDERED: PROTONIX40 MG PO (20:21)
[2017-01-29] MEDS ORDERED: TYLENOL EXTRA500 MG PO (20:21)
[2017-01-29 22:20] LABS: MAGNESIUM 1.1 mg/dL (1.3-2.7)
[2017-01-29 22:58] VITALS: BP 133/67
[2017-01-30] VITALS (7 sets, daily range): BP systolic 109–182; BP diastolic 61–84
[2017-01-30 01:09] LABS: TROP-I INTERPRETATION NEGATIVE; TROPONIN-I 0.06 ng/mL (0.0-0.30)
[2017-01-30 07:15] LABS: TROP-I INTERPRETATION NEGATIVE; TROPONIN-I 0.07 ng/mL (0.0-0.30)
[2017-01-30 07:17] LABS: ALKALINE PHOSPHATASE 62 IU/L (3-129); ANION GAP 7 MEQ/L (2-14); CHLORIDE 99 MEQ/L (99-109); GFR ESTIMATE (CALCULATED) > 59 mL/min/; GLUCOSE 89 mg/dL (70-99); MAGNESIUM 2.6 mg/dl (1.3-2.7); POTASSIUM 4.2 MEQ/L (3.7-5.4); SAMPLE HEMOLYSIS CHECK 0; SAMPLE ICTERIC CHECK 0; SAMPLE LIPEMIA CHECK 0; SODIUM 134 MEQ/L (136-147); TOTAL BILIRUBIN 0.5 MG/DL (0.0-1.0); UREA NITROGEN (BUN) 10 mg/dL (9-23)
[2017-01-31] VITALS (8 sets, daily range): BP systolic 138–194; BP diastolic 65–90
[2017-01-31 06:41] LABS: BASOPHIL COUNT 0.1 K/uL (0-0.1); EOSINOPHIL (%) 6.5 % (0-5); EOSINOPHIL COUNT 0.4 K/uL (0-0.3); IMMATURE GRANULOCYTE (%) 0.3 % (0.0-0.7); INSTRUMENT ABS NEUTROPHIL CT 3.4 K/uL; LYMPHOCYTE COUNT 1.5 K/uL (1.0-2.8); MCH 29.1 PG (29.0-34.0); MCHC 32.1 G/DL (30.0-36.0); MCV 90.9 FL (83-99); MEAN PLAT.VOLUME 9.1 uM^3 (9.5-12.4); MONOCYTE (%) 12.7 % (3-12); MONOCYTE COUNT 0.8 K/uL (0-0.8); NEUTROPHIL (%) 54.7 % (45-76); NEUTROPHIL COUNT 3.4 K/uL (1.8-6.4); PLATELET COUNT 322 K/uL (156-360); RBC DIS.WIDTH-CV 14.4 % (11.8-14.6); RED BLOOD COUNT 3.74 M/uL (3.80-5.20); WHITE BLOOD COUNT 6.1 K/uL (4.1-10.2)
[2017-01-31 07:06] LABS: ANION GAP 9 MEQ/L (2-14); CHLORIDE 101 MEQ/L (99-109); GFR ESTIMATE (CALCULATED) > 59 mL/min/; GLOBULINS 3.5 G/DL (2.3-3.5); GLUCOSE 83 mg/dL (70-99); POTASSIUM 3.5 MEQ/L (3.7-5.4); SAMPLE HEMOLYSIS CHECK 0; SAMPLE ICTERIC CHECK 0; SAMPLE LIPEMIA CHECK 0; SODIUM 134 MEQ/L (136-147); UREA NITROGEN (BUN) 10 mg/dL (9-23)
[2017-01-31 07:40] LABS: INTACT PARATHYROID HORMONE 55 pg/mL (10-69)
[2017-01-31 15:15] LABS: ALBUMIN 2.99 G/DL (3.6-4.9); ALPHA-1 GLOBULIN 0.42 G/DL (0.15-0.40); ALPHA-1 PERCENT 6.4 % (2.1-5.5); ALPHA-2 GLOBULIN 0.86 G/DL (0.45-0.85); ALPHA-2 PERCENT 13.2 % (6.2-11.6); BETA PERCENT 13.2 % (8.9-15.8); GAMMA PERCENT 21.2 % (8.6-18.6)
[2017-02-01 00:54] VITALS: BP 180/77
[2017-02-01 03:49] VITALS: BP 161/74
[2017-02-01 07:53] VITALS: BP 188/94
[2017-02-01 09:19] LABS: HEMATOCRIT 35.9 % (36.0-46.0); MCH 29.9 PG (29.0-34.0); MCHC 33.1 G/DL (30.0-36.0); MCV 90.2 FL (83-99); MEAN PLAT.VOLUME 9.8 uM^3 (9.5-12.4); PLATELET COUNT 265 K/uL (156-360); RBC DIS.WIDTH-CV 14.6 % (11.8-14.6); RBC DIS.WIDTH-SD 47.8 % (39-53); RED BLOOD COUNT 3.98 M/uL (3.80-5.20); WHITE BLOOD COUNT 7.3 K/uL (4.1-10.2)
[2017-02-01 11:21] LABS: ALKALINE PHOSPHATASE 67 IU/L (3-129); ANION GAP 8 MEQ/L (2-14); CHLORIDE 105 MEQ/L (99-109); GFR ESTIMATE (CALCULATED) > 59 mL/min/; GLUCOSE 95 mg/dL (70-99); SAMPLE HEMOLYSIS CHECK 0; SAMPLE ICTERIC CHECK 0; SAMPLE LIPEMIA CHECK 0; SODIUM 135 MEQ/L (136-147); TOTAL BILIRUBIN 0.6 MG/DL (0.0-1.0); UREA NITROGEN (BUN) 7 mg/dL (9-23)
[2017-02-01 11:26] LABS: MAGNESIUM 1.4 mg/dl (1.3-2.7); POTASSIUM 4.4 MEQ/L (3.7-5.4)
[2017-02-01 19:54] LABS: UR CALCIUM CONCENTRATION 8.9 MG/DL; UR PHOSHORUS CONCENTRATION < 10 MG/DL
[2017-02-01 23:49] VITALS: BP 142/69
[2017-02-02 06:16] LABS: ANION GAP 14 MEQ/L (2-14); CHLORIDE 105 MEQ/L (99-109); GFR ESTIMATE (CALCULATED) > 59 mL/min/; GLUCOSE 86 mg/dL (70-99); SAMPLE HEMOLYSIS CHECK 0; SAMPLE ICTERIC CHECK 0; SAMPLE LIPEMIA CHECK 0; SODIUM 137 MEQ/L (136-147); UREA NITROGEN (BUN) 5 mg/dL (9-23)
[2017-02-02 08:55] LABS: HEMATOCRIT 34.9 % (36.0-46.0); MCH 29.4 PG (29.0-34.0); MCHC 31.8 G/DL (30.0-36.0); MCV 92.3 FL (83-99); MEAN PLAT.VOLUME 9.7 uM^3 (9.5-12.4); PLATELET COUNT 320 K/uL (156-360); RBC DIS.WIDTH-CV 15.2 % (11.8-14.6); RBC DIS.WIDTH-SD 51.3 % (39-53); RED BLOOD COUNT 3.78 M/uL (3.80-5.20); WHITE BLOOD COUNT 6.5 K/uL (4.1-10.2)
[2017-02-02 13:48] VITALS: BP 134/65
[2017-02-02 15:20] LABS: ANION GAP 9 MEQ/L (2-14); CHLORIDE 105 MEQ/L (99-109); GFR ESTIMATE (CALCULATED) > 59 mL/min/; POTASSIUM 4.1 MEQ/L (3.7-5.4); SAMPLE HEMOLYSIS CHECK 0; SAMPLE ICTERIC CHECK 0; SAMPLE LIPEMIA CHECK 0; SODIUM 135 MEQ/L (136-147); UREA NITROGEN (BUN) 5 mg/dL (9-23)
[2017-02-02 15:21] LABS: GLUCOSE 154 mg/dL (70-99)
[2017-02-03 00:10] VITALS: BP 127/60
[2017-02-03 06:15] LABS: ANION GAP 8 MEQ/L (2-14); CHLORIDE 108 MEQ/L (99-109); GFR ESTIMATE (CALCULATED) 56 mL/min/; GLUCOSE 127 mg/dL (70-99); POTASSIUM 3.9 MEQ/L (3.7-5.4); SAMPLE HEMOLYSIS CHECK 0; SAMPLE ICTERIC CHECK 0; SAMPLE LIPEMIA CHECK 0; SODIUM 140 MEQ/L (136-147); UREA NITROGEN (BUN) 4 mg/dL (9-23)
[2017-02-03 06:19] LABS: ALKALINE PHOSPHATASE 52 IU/L (3-129); ANION GAP 9 MEQ/L (2-14); CHLORIDE 109 MEQ/L (99-109); GFR ESTIMATE (CALCULATED) 56 mL/min/; GLUCOSE 121 mg/dL (70-99); POTASSIUM 3.9 MEQ/L (3.7-5.4); SAMPLE HEMOLYSIS CHECK 0; SAMPLE ICTERIC CHECK 0; SAMPLE LIPEMIA CHECK 0; SODIUM 141 MEQ/L (136-147); TOTAL BILIRUBIN 0.4 MG/DL (0.0-1.0); UREA NITROGEN (BUN) 5 mg/dL (9-23)
[2017-02-03 08:21] VITALS: BP 154/67
[2017-02-03 15:54] VITALS: BP 130/64
[2017-02-04] VITALS: BP 129/61
[2017-02-04 06:07] LABS: HEMATOCRIT 32.8 % (36.0-46.0); MCH 29.8 PG (29.0-34.0); MCHC 32.3 G/DL (30.0-36.0); MCV 92.1 FL (83-99); MEAN PLAT.VOLUME 9.4 uM^3 (9.5-12.4); PLATELET COUNT 275 K/uL (156-360); RBC DIS.WIDTH-CV 15.2 % (11.8-14.6); RED BLOOD COUNT 3.56 M/uL (3.80-5.20); WHITE BLOOD COUNT 4.5 K/uL (4.1-10.2)
[2017-02-04 06:34] LABS: ANION GAP 7 MEQ/L (2-14); CHLORIDE 108 MEQ/L (99-109); GFR ESTIMATE (CALCULATED) > 59 mL/min/; GLUCOSE 114 mg/dL (70-99); POTASSIUM 3.4 MEQ/L (3.7-5.4); SAMPLE HEMOLYSIS CHECK 0; SAMPLE ICTERIC CHECK 0; SAMPLE LIPEMIA CHECK 0; SODIUM 137 MEQ/L (136-147); UREA NITROGEN (BUN) 3 mg/dL (9-23)
[2017-02-04 08:11] VITALS: BP 142/71
[2017-02-04 11:14] LABS: EOSINOPHIL (%) 4.9 % (0-5); EOSINOPHIL COUNT 0.2 K/uL (0-0.3); IMMATURE GRANULOCYTE (%) 0.2 % (0.0-0.7); INSTRUMENT ABS NEUTROPHIL CT 2.1 K/uL; LYMPHOCYTE COUNT 1.5 K/uL (1.0-2.8); MONOCYTE (%) 14.3 % (3-12); MONOCYTE COUNT 0.6 K/uL (0-0.8); NEUTROPHIL (%) 47.2 % (45-76); NEUTROPHIL COUNT 2.1 K/uL (1.8-6.4)
[2017-02-04 16:28] VITALS: BP 123/59
[2017-02-05 00:24] VITALS: BP 122/58
[2017-02-05 08:00] VITALS: BP 144/74
[2017-02-05 10:16] LABS: ANION GAP 6 MEQ/L (2-14); CHLORIDE 110 MEQ/L (99-109); GFR ESTIMATE (CALCULATED) > 59 mL/min/; GLUCOSE 103 mg/dL (70-99); POTASSIUM 3.8 MEQ/L (3.7-5.4); SAMPLE HEMOLYSIS CHECK 0; SAMPLE ICTERIC CHECK 0; SAMPLE LIPEMIA CHECK 0; SODIUM 139 MEQ/L (136-147); UREA NITROGEN (BUN) 5 mg/dL (9-23)
[2017-02-05 15:51] VITALS: BP 147/67
[2017-02-05 23:43] VITALS: BP 141/64
[2017-02-06 07:34] VITALS: BP 142/71
[2017-02-06 15:28] VITALS: BP 159/71
[2017-02-06 23:48] VITALS: BP 140/78
[2017-02-07 09:44] VITALS: BP 142/89
[2017-02-07 13:06] VITALS: BP 136/89
[2017-02-07 23:37] VITALS: BP 159/67
[2017-02-08 07:29] VITALS: BP 139/65
[2017-02-08 15:58] VITALS: BP 148/81
[2017-02-08 23:45] VITALS: BP 128/72
[2017-02-09 07:20] VITALS: BP 186/96
[2017-02-09 12:21] VITALS: BP 132/60
[2017-02-09] MEDS ORDERED: DOCUSATE SODIU100 MG PO (12:42)
[2017-02-09] MEDS ORDERED: LOSARTAN POTASS50 MG PO (12:43)
[2017-02-09] MEDS ORDERED: PHENERGAN25 MG PR (12:44)
[2017-02-09] MEDS ORDERED: REGLAN10 MG PO (12:44)
[2017-02-09] MEDS ORDERED: ATIVAN INTE2 MG/1 ML PO (12:47)
[2017-02-09] MEDS ORDERED: MORPHINE CON20 MG/M1 PO (12:47)
[2017-02-09] MEDS ORDERED: HYOSCYAMINE0.125 M2 PO (12:47)
[2017-02-09] MEDS ORDERED: TRAMADOL HCL50 MG PO (12:47)
[2017-02-11 16:17] LABS: NUMBER OF MARKERS 24; SPECIMEN VIABILITY 83
== END 2017-02-09 14:24 | disposition hospice, home (50) | DRG 391 ==
LOC: EME 17:00 → 5SOUTH 20:46 → EDOF 20:46 → ENRESERV 20:51 → 5SOUTH 21:47
PROVIDERS: Emergency Medicine; Family Medicine; Internal Medicine; Internal Medicine Hematology & Oncology; Internal Medicine Nephrology; Physician Assistant Medical
PROC: 07DR3ZX Extraction of Iliac Bone Marrow, Percutaneous Approach, Diagnostic (ICD-10-PCS; principal; 2017-02-04)
DX: K31.84 Gastroparesis (principal); G93.40 Encephalopathy, unspecified; N30.00 Acute cystitis without hematuria; E83.52 Hypercalcemia; E86.0 Dehydration; E87.1 Hypo-osmolality and hyponatremia; E83.42 Hypomagnesemia; N18.3 Chronic kidney disease, stage 3 (moderate); K22.3 Perforation of esophagus; I48.0 Paroxysmal atrial fibrillation; E83.39 Other disorders of phosphorus metabolism; F22 Delusional disorders; E87.2 Acidosis; I12.9 Hypertensive chronic kidney disease with stage 1 through stage 4 chronic kidney disease, or unspecified chronic kidney disease; F03.90 Unspecified dementia, unspecified severity, without behavioral disturbance, psychotic disturbance, mood disturbance, and anxiety; K44.9 Diaphragmatic hernia without obstruction or gangrene; C90.00 Multiple myeloma not having achieved remission; E78.5 Hyperlipidemia, unspecified; Z51.5 Encounter for palliative care; Z66 Do not resuscitate; M79.7 Fibromyalgia; E87.6 Hypokalemia; G89.29 Other chronic pain; K21.0 Gastro-esophageal reflux disease with esophagitis; K29.70 Gastritis, unspecified, without bleeding; B96.20 Unspecified Escherichia coli [E. coli] as the cause of diseases classified elsewhere; Z90.11 Acquired absence of right breast and nipple; Z79.899 Other long term (current) drug therapy; Z85.3 Personal history of malignant neoplasm of breast; Z87.01 Personal history of pneumonia (recurrent); Z87.442 Personal history of urinary calculi; Z82.49 Family history of ischemic heart disease and other diseases of the circulatory system; Z80.3 Family history of malignant neoplasm of breast
CPT/HCPCS: 70450; 77075; 78070; 78072; 78264; 80048; 80048 91; 80053; 81003; 81050; 82330; 82340; 82550; 82553; 83605; 83735; 83883 90; 83970; 84100; 84105; 84133; 84165; 84300; 84484; 85025; 85027; 86334; 87077; 87086 GA; 87186; 90686; 93005; 99281; 99285; A9500; A9512; A9541; C9113; J1644; J1956; J2405; J2765; J3475; J3480; J7030